=== PATIENT | male | born 1970 | race Caucasian/White ===

== ENCOUNTER → 2016-12-31 | Outpatient (CLI) | payer OTHER ==
--- NOTE | 2016-12-31 13:14 | XR ---
EXAMINATION TYPE: XR elbow complete RT DATE OF EXAM: 12/31/2016 1:07 PM CLINICAL HISTORY: pain TECHNIQUE: Frontal, lateral and oblique images of the right elbow are obtained. COMPARISON: None. FINDINGS: There is no acute fracture/dislocation evident of the elbow. No abnormal fat pad signs ar e seen. The overlying soft tissue appears unremarkable. IMPRESSION: There is no acute fracture or dislocation of the elbow. ICD 10 NO FRACTURE, INITIAL EVALUATION
== END | disposition home or self-care (01) ==
LOC: RADXRMAIN 12:51
PROVIDERS: ATTEND Physician Assistant Medical
DX: M25.521 Pain in right elbow (principal)

== ENCOUNTER → 2017-01-07 | Outpatient (CLI) | payer OTHER ==
--- NOTE | 2017-01-07 21:55 | XR ---
EXAMINATION TYPE: 4 views left wrist. 3 views left hand. DATE OF EXAM: 01/07/2017 4:18 PM COMPARISON: NONE HISTORY: 46-year-old male localized swelling, left upper limb/wrist pain. Lump over the left carpals causing pain. FINDINGS: Wrist: There is negative ulnar variance. Borderline to mild widening of the scapholunate interval measuring up to 2.3 mm on the navicular view. No acute fracture, subluxation, or dislocation. There is a cortic ated bone fragment measuring 6 mm at the dorsal carpus that could represent a chronic ununited trique tral fracture. There is additional fragmentation with bony irregularity at the dorsal CMC joints with the largest bone fragment measuring 1.1 cm. There is overlying soft tissue swelling at the dorsal ca rpus. Mild degenerative spurring at the first CMC joint. Hand: No acute fracture, subluxation, or dislocation. IMPRESSION: 1. 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 2. Possible posttraumatic osteoarthrosis and dorsal carpal deformity on the lateral view at the level of the CMC joints. Overlying soft tissue swelling. The alternative possibility is a degenerated carp al boss. Clinical correlation recommended as to patient's trauma history. 3. Borderline to mild widening of the scapholunate interval suggests age indeterminate ligamentous sp rain/injury. Correlate for any wrist instability. 4. Mild osteoarthritic changes at the base of the thumb. 5. Incidental negative ulnar variance.
== END ==
LOC: RADXRMAIN 16:06
PROVIDERS: ATTEND Nurse Practitioner Family
DX: M25.432 Effusion, left wrist (principal); M19.042 Primary osteoarthritis, left hand

== ENCOUNTER → 2017-01-19 | Outpatient (CLI) | payer OTHER ==
--- NOTE | 2017-01-19 13:13 | XR ---
EXAMINATION TYPE: XR shoulder complete BILAT DATE OF EXAM: 01/19/2017 1:01 PM CLINICAL HISTORY: pain COMPARISON: NONE TECHNIQUE: Three views of the left shoulder are obtained. FINDINGS: There is no acute fracture/dislocation evident. The acromioclavicular and glenohumeral danial int spaces appear mildly narrowed.. The visualized ribs are intact and unremarkable. IMPRESSION: 1. There is no acute fracture or dislocation. ICD 10 NO FRACTURE, INITIAL EVALUATION EXAMINATION TYPE: XR shoulder complete BILAT DATE OF EXAM: 01/19/2017 1:01 PM CLINICAL HISTORY: pain TECHNIQUE: Three views of the right shoulder are obtained. COMPARISON: None FINDINGS: There is no acute fracture/dislocation evident. The acromioclavicular and glenohumeral danial int spaces appear mildly narrowed. The visualized ribs are intact and unremarkable.
== END | disposition home or self-care (01) ==
LOC: RADXRMAIN 12:35
PROVIDERS: ATTEND Family Medicine
DX: S46.012A Strain of muscle(s) and tendon(s) of the rotator cuff of left shoulder, initial encounter (principal); S46.011A Strain of muscle(s) and tendon(s) of the rotator cuff of right shoulder, initial encounter; M25.511 Pain in right shoulder; M25.512 Pain in left shoulder; X58.XXXA Exposure to other specified factors, initial encounter

== ENCOUNTER → 2017-03-24 | Outpatient (CLI) | payer OTHER ==
--- NOTE | 2017-03-24 22:09 | XR ---
EXAMINATION TYPE: 3 views left shoulder. 2 views bilateral AC joints, without and with weights DATE OF EXAM: 03/24/2017 COMPARISON: 01/19/2017 HISTORY: 46-year-old male left shoulder pain after fall FINDINGS: Left shoulder: Moderate degenerative joint space narrowing and marginal spurring at the acromioclavicular joint. Pro minent inferior spurring encroaches onto the subacromial space. No tendinous or bursal calcifications are seen. No acute fracture, subluxation, or dislocation. Visualized left hemithorax is clear. AC joints: There is asymmetric degenerative joint space narrowing at the left AC joint. No abnormal offset at th e AC joint or widening of the coracoclavicular distance either an neutral position or with weights. IMPRESSION: 1. Left shoulder without acute osseous abnormality seen. 2. Moderate left and mild right AC joint osteoarthrosis. Prominent inferior spurring is present on patrick th sides. No abnormal widening or joint offset with weights which argues against AC joint separation.
== END | disposition home or self-care (01) ==
LOC: RADXRMAIN 18:59
PROVIDERS: ATTEND Family Medicine
DX: M19.012 Primary osteoarthritis, left shoulder (principal); M75.82 Other shoulder lesions, left shoulder
CPT/HCPCS: 73050

== ENCOUNTER → 2017-05-25 | Outpatient (CLI) | payer OTHER ==
--- NOTE | 2017-05-25 14:40 | FL ---
Shoulder arthrogram HISTORY: Trauma and pain 1 minute 18 seconds fluoroscopy time supplied, 4 intraoperative images document the procedure Maximal barrier technique was utilized. The skin overlying the glenohumeral joint was localized with fluoroscopy and the overlying skin prepped and draped. Lidocaine used for local anesthesia. 22-gauge needle was advanced into the joint space under fluoroscopy and approximately 2 cc of Omnipaque 240 mi xed with 10 cc saline and 0.1 cc of Magnevist was injected under intermittent fluoroscopy into the danial int, spot images obtained. Following the procedure hemostasis achieved following removal of the needl e. Patient remained in stable condition without complication. IMPRESSION: Fluoroscopic arthrogram for MRI, this procedure performed by the undersigned.
--- NOTE | 2017-05-25 21:08 | MR ---
EXAMINATION TYPE: MR shoulder LT w con DATE OF EXAM: 05/25/2017 COMPARISON: Left shoulder x-ray March 24, 2017. HISTORY: sprain of acromioclavicular ligament lt, arthrogram. Evaluate biceps tendon and labral tear per order. Pain with difficulty raising arm overhead since fall injury 2 months ago. TECHNIQUE: Multiplanar, multisequence images of the left shoulder is performed with 1 mL intravenous MultiHance gadolinium contrast diluted in Omnipaque and sterile saline. Fluoroscopy arthrogram report is dictated separately. FINDINGS: Exam is suboptimal as due to patient pain and was unable to complete entire post arthrogram MRI shoulder protocol. Rotator Cuff: Supraspinatus tendon is completely torn and retracted roughly 3 cm to level of the late ral aspect of the acromion. Infraspinatus tendon remains intact. Teres minor tendon is intact. Subsca pularis tendon is intact. Rotator cuff muscle bulk is preserved. Acromioclavicular Joint: There is capsular hypertrophy with joint space loss and spurring at the acro mioclavicular joint including inferior spurring from distal clavicle. There is effacement of inferior fat plane due to inferior spurring. There is additional subchondral cystic change at this level. Glenohumeral Joint: Successful arthrogram with contrast opacification. Free spillage of contrast into subdeltoid/subacromial space is noted consistent with full-thickness retracted rotator cuff tear. Labrum: The labrum appears grossly intact given limitation of non-arthrogram study. Biceps Tendon: The long head of biceps is in normal location within bicipital groove. Bone marrow signal: No focal abnormal marrow signal is appreciated. Other: No additional significant abnormality is appreciated. IMPRESSION: 1. Full-thickness retracted tear of supraspinatus tendon. 2. Fairly advanced acromioclavicular joint arthropathy with suggestion of underlying impingement inci dentally noted.
== END | disposition home or self-care (01) ==
LOC: RADFLMAIN 13:00
PROVIDERS: ATTEND Orthopaedic Surgery
DX: S46.012A Strain of muscle(s) and tendon(s) of the rotator cuff of left shoulder, initial encounter (principal); M12.812 Other specific arthropathies, not elsewhere classified, left shoulder
CPT/HCPCS: 23350; 73040; 73222; Q9966; A9577

== ENCOUNTER 2019-01-10 08:33 | Day surgery (SDC) | payer OTHER ==
[2019-01-06 10:15] VITALS: BMI 33.6
[~2019-01-10 08:33] MED LIST: SODIUM CHLORIDE 0.9% 1,000 ML IV SCH; ceFAZolin IN SWFI 2 GM/20 ML SYRINGE IVP ONE
[2019-01-10 08:57] VITALS: PULSE 70; RESP 20; TEMP 98
[2019-01-10] MEDS ORDERED: LIDOCAINE 1% INJ 10MG/ML (20 ML MDV) ONE (09:34)
[2019-01-10] MEDS ORDERED: IV FLUID CONTINUATION 450 ML IV ONE (09:35)
[2019-01-10] MEDS ORDERED: fentaNYL (PF) 50 MCG/ML 2 ML AMP ONE (09:45)
[2019-01-10] MEDS ORDERED: fentaNYL (PF) 50 MCG/ML 2 ML AMP IV ONE (09:50)
--- NOTE | 2019-01-10 10:05 | P.PCN ---
Preoperative Diagnosis: Loop explant under sedation and local anesthesia. Patient was brought to the EP lab in a fasting state. Written informed consent was obtained prior to the procedure. The subcutaneous device was successfully explanted under local anesthesia. Preoperative antibiotics were administered. The wound was closed in layers and dressed per protocol. Result: Successful loop monitor explantation. Patient underwent EP procedure under conscious sedation/moderate sedation, monitoring of the level of consciousness and physiologic parameters including but not limited to vital signs and oxygenation. Patient tolerated the procedure well without any acute complications. Start time: 949 Stop time: 956 Disposition: same day
--- NOTE | 2019-01-10 10:06 | P.PRLE ---
RE: Liborio Lopez Dear Dr. Cris Lopez underwent successful explantation of the loop monitor. We are not detected any bradycardia arrhythmias over the last few years He will continue to follow with you as before and I'll see him once again at least a yearly basis Thank you for entrusting me with the care of the patient Warm regards Sincerely Castro Erickson
[2019-01-10 10:50] VITALS: BP 124/76
== END 2019-01-10 10:45 | disposition home or self-care (01) ==
LOC: CATHEP 08:33
PROVIDERS: ATTEND Internal Medicine Clinical Cardiac Electrophysiology
DX: Z45.09 Encounter for adjustment and management of other cardiac device (principal); Z82.49 Family history of ischemic heart disease and other diseases of the circulatory system; F17.210 Nicotine dependence, cigarettes, uncomplicated; Z79.899 Other long term (current) drug therapy; Z79.01 Long term (current) use of anticoagulants; Z91.048 Other nonmedicinal substance allergy status
CPT/HCPCS: 33286; J3010; J0690

== ENCOUNTER → 2019-06-14 | Outpatient (CLI) | payer OTHER ==
--- NOTE | 2019-06-14 12:30 | US ---
LOWER EXTREMITY VENOUS INSUFFICIENCY CLINICAL HISTORY: I87.311 Chronic Venous Hypertension W Rt Leg. SIDE PERFORMED: Bilateral 1) Color flow is present and patency is documented in the following vessels. No DVT or SVT is noted . EIV Common Femoral Vein Deep Femoral Vein Femoral Vein Popliteal Vein Proximal Calf Veins Greater Saph Vein Upper Small Saph Vein 2) There is no venous reflux noted. IMPRESSION: 1. No significant venous reflux evident during this examination. No deep venous thrombosis.
--- NOTE | 2019-06-15 15:07 | P.ARTDOP ---
Arterial Doppler LOWER EXTREMITY ARTERIAL DOPPLER: DATE OF SERVICE: 06/14/2019 Reason for study: Right calf ulcer. Doppler waveforms: Multiphasic bilaterally throughout. Pulse volume recording: []. Pressure gradients: None. Ankle-brachial indices: Greater than 1 bilaterally. Toe pressures: 106 on the right, 106 on the left Impression: Normal study.
== END | disposition home or self-care (01) ==
LOC: RADUSWWP 08:44
PROVIDERS: ATTEND Family Medicine
DX: I87.311 Chronic venous hypertension (idiopathic) with ulcer of right lower extremity (principal); I87.2 Venous insufficiency (chronic) (peripheral); I87.8 Other specified disorders of veins
CPT/HCPCS: 93922; 93970

== ENCOUNTER 2019-07-12 19:26 | Emergency (ER) | payer OTHER ==
[2019-07-12 19:34] VITALS: BP 145/83; PULSE 86; RESP 18; TEMP 98.6
--- NOTE | 2019-07-12 20:27 | XR ---
PROCEDURE: XR tibia fibula RT - 4V DATE AND TIME: 07/12/2019 7:56 PM CLINICAL INDICATION: PHH; pain after hit himsef with hammer TECHNIQUE: Orthogonal imaging was obtained of the knee contiguously to the ankle. COMPARISON: 06/04/2016 FINDINGS: There is no fracture or malalignment. The soft tissues are unremarkable. IMPRESSION: NO ACUTE PROCESS.
--- NOTE | 2019-07-12 20:35 | ED ---
General Adult HPI - General Chief complaint: Extremity Injury, Lower Stated complaint: IHS R Leg Injury Time Seen by Provider: 07/12/19 19:35 Source: patient Mode of arrival: ambulatory Limitations: no limitations - History of Present Illness Initial comments: Patient is a 48-year-old male with factor Leiden is presenting to emergency Department with a chief complaint of right leg pain. Patient reports he was at work when he accidentally hit his right lower leg with a hammer. The region he injured was already dressed by the wound clinic for healing also. Patient also has stasis dermatitis chronically in the right lower leg. Patient reports tenderness with palpation in the region. Patient denies any limitation with range of motion. Patient denies taking any medication to alleviate the symptoms. Patient is already on antibiotics for a healing wound. Patient declined pain medication. - Related Data Home Medications Medication Instructions Recorded Confirmed HYDROcodone/APAP 7.5-325MG [[place] 1 each PO Q6HR PRN 01/12/15 01/06/19 7.5-325] Ibuprofen [Motrin] 800 mg PO Q6HR PRN 01/12/15 01/06/19 Omeprazole [PriLOSEC] 20 mg PO AC-BID 01/12/15 01/06/19 Rivaroxaban [Xarelto] 20 mg PO DAILY 01/12/15 01/10/19 Allergies Allergy/AdvReac Type Severity Reaction Status Date / Time adhesive AdvReac Rash/Hives Verified 07/12/19 19:34 Review of Systems ROS Statement: Those systems with pertinent positive or pertinent negative responses have been documented in the HPI. ROS Other: All systems not noted in ROS Statement are negative. Past Medical History Past Medical History: Blood Disorder, Deep Vein Thrombosis (DVT), GERD/Reflux, Osteoarthritis (OA) Additional Past Medical History / Comment(s): SEE DR LIVINGSTON H&P, FACTOR 5 LEIDEN, DVT X 4 LOWER RT LEG, ulcer to right ankle, History of Any Multi-Drug Resistant Organisms: None Reported Past Surgical History: Orthopedic Surgery Additional Past Surgical History / Comment(s): LOOP RECORDER IMPLANT GANGLION CYST REMOVED RT WRIST, ARTH. SURG X 2 RT KNEE & X1 LT KNEE, left rotator cuff surgery, Past Anesthesia/Blood Transfusion Reactions: No Reported Reaction Past Psychological History: No Psychological Hx Reported Smoking Status: Current every day smoker Past Alcohol Use History: None Reported Past Drug Use History: None Reported - Past Family History Mother Family Medical History: No Reported History Father Family Medical History: Coronary Artery Disease (CAD) Additional Family Medical History / Comment(s): ETOH use. Still living. General Exam Limitations: no limitations General appearance: alert, in no apparent distress Head exam: Present: atraumatic, normocephalic, normal inspection Eye exam: Present: normal appearance Pupils: Present: normal accommodation ENT exam: Present: normal exam, mucous membranes moist, normal external ear exam Neck exam: Present: normal inspection, full ROM Respiratory exam: Present: normal lung sounds bilaterally Cardiovascular Exam: Present: regular rate, normal rhythm, normal heart sounds Extremities exam: Present: tenderness (Tenderness at the site of injury.), normal capillary refill. Absent: normal inspection (Stasis dermatitis in the ri ght lower leg. Mild abrasion in the right lower leg at the site of injury. No discharge noted.), full ROM, calf tenderness (Negative Homans bilaterally.) Back exam: Present: normal inspection, full ROM Neurological exam: Present: alert, oriented X3 Psychiatric exam: Present: normal affect, normal mood Skin exam: Present: warm, intact, normal color Course Vital Signs 07/12/19 19:31 Temperature 98.6 F Pulse Rate 86 Respiratory 18 Rate Blood Pressure 145/83 O2 Sat by Pulse 98 Oximetry Medical Decision Making - Medical Decision Making Patient is a 48-year-old male with history of factor V Leiden is presenting to the emergency department with a chief complaint right leg injury. Patient hit himself with a hammer. Physical examination there is only mild abrasion at the site of injury. Patient has no calf tenderness. However, the right lower leg was dressed by the wound clinic with high compression stockings soda patient does not have swelling. X-rays are negative for acute fractures or dislocations. The right lower leg was redressed. Patient advised to follow-up with her own clinic tomorrow. Patient is currently taking Bactrim. Strict return parameters were thoroughly discussed the patient was understanding and agreeable. Case discussed with physician. Disposition Clinical Impression: Injury of lower leg, right Disposition: HOME SELF-CARE Condition: Stable Instructions (If sedation given, give patient instructions): Leg Pain (ED) Additional Instructions: Please follow up with. Wound clinic. Please return to emergency department symptoms worsen. Continue taking the Bactrim prescribed. Is patient prescribed a controlled substance at d/c from ED?: No Referrals: Timothy Lynch III, MD [Primary Care Provider] - 1-2 days Time of Disposition: 20:35
== END 2019-07-12 21:09 | disposition home or self-care (01) ==
LOC: EC 19:26
DX: S80.811A Abrasion, right lower leg, initial encounter (principal); I87.2 Venous insufficiency (chronic) (peripheral); K21.9 Gastro-esophageal reflux disease without esophagitis; D68.51 Activated protein C resistance; F17.200 Nicotine dependence, unspecified, uncomplicated; Z91.048 Other nonmedicinal substance allergy status; Z79.01 Long term (current) use of anticoagulants; Z79.899 Other long term (current) drug therapy; Z86.718 Personal history of other venous thrombosis and embolism; W22.8XXA Striking against or struck by other objects, initial encounter; Y92.69 Other specified industrial and construction area as the place of occurrence of the external cause; Y99.0 Civilian activity done for income or pay
CPT/HCPCS: 99283

== ENCOUNTER 2019-10-28 12:58 | Emergency (ER) | payer OTHER ==
[2019-10-28 13:05] VITALS: RESP 16; TEMP 98.6
[2019-10-28] MEDS ORDERED: DIPH,PERTUS(ACELL)TETVAC-LF 0.5 ML VIAL IM ONE (13:17)
[2019-10-28] MEDS ORDERED: ceFAZolin 1,000 MG VIAL (IM USE) IM STA (13:17)
--- NOTE | 2019-10-28 14:19 | ED ---
Burn/Smoke HPI - General Chief complaint: Burn/Smoke Inhalation Stated complaint: IHS-left leg burn Time Seen by Provider: 10/28/19 13:10 Source: patient Mode of arrival: ambulatory Limitations: no limitations - History of Present Illness Initial comments: 49-year-old male presenting today for chief complaint of burn to left foot. Patient states he was at work blowing hot baths when it seemed to pants and into his left boot. Patient states he has areas of the burn blistering and redness of the left foot. Patient states some areas is unable to feel. Patient denies any other areas of body that was involved denies any smoke inhalation or involvement of the head or neck. Patieny appears well on arrival, ambulatory. - Related Data Home Medications Medication Instructions Recorded Confirmed HYDROcodone/APAP 7.5-325MG [[place] 1 each PO Q6HR PRN 01/12/15 01/06/19 7.5-325] Ibuprofen [Motrin] 800 mg PO Q6HR PRN 01/12/15 01/06/19 Omeprazole [PriLOSEC] 20 mg PO AC-BID 01/12/15 01/06/19 Rivaroxaban [Xarelto] 20 mg PO DAILY 01/12/15 01/10/19 Allergies Allergy/AdvReac Type Severity Reaction Status Date / Time silver sulfadiazine Allergy Rash/Hives Verified 10/28/19 13:02 [From Silvadene] adhesive AdvReac Rash/Hives Verified 10/28/19 13:02 Review of Systems ROS Statement: Those systems with pertinent positive or pertinent negative responses have been documented in the HPI. ROS Other: All systems not noted in ROS Statement are negative. Past Medical History Past Medical History: Blood Disorder, Deep Vein Thrombosis (DVT), GERD/Reflux, Osteoarthritis (OA) Additional Past Medical History / Comment(s): SEE DR LIVINGSTON H&P, FACTOR 5 LEIDEN, DVT X 4 LOWER RT LEG, ulcer to right ankle, History of Any Multi-Drug Resistant Organisms: None Reported Past Surgical History: Orthopedic Surgery Additional Past Surgical History / Comment(s): LOOP RECORDER IMPLANT GANGLION CYST REMOVED RT WRIST, ARTH. SURG X 2 RT KNEE & X1 LT KNEE, left rotator cuff surgery, Past Anesthesia/Blood Transfusion Reactions: No Reported Reaction Past Psychological History: No Psychological Hx Reported Smoking Status: Current every day smoker Past Alcohol Use History: None Reported Past Drug Use History: None Reported - Past Family History Mother Family Medical History: No Reported History Father Family Medical History: Coronary Artery Disease (CAD) Additional Family Medical History / Comment(s): ETOH use. Still living. General Exam - General Exam Comments Initial Comments: General: The patient is awake and alert, in no distress Eye: +3 mm pupils are equal, round and reactive to light, extra-ocular movements are intact. No nystagmus. There is normal conjunctiva bilaterally. No signs of icterus. Ears, nose, mouth and throat: There are moist mucous membranes and no oral lesions. Neck: The neck is supple, there is no tenderness or JVD. Cardiovascular: There is a regular rate and rhythm. No murmur, rub or gallop is appreciated. Respiratory: Lungs are clear to auscultation, respirations are non-labored, breath sounds are equal. No wheezes, stridor, rales, or rhonchi. Musculoskeletal: Normal ROM, no tenderness. Strength 5/5. Sensation intact. Radial pulses equal bilaterally 2+. Neurological: A&O x 3. CN II-XII intact grossly, There are no obvious motor or sensory deficits. Coordination appears grossly intact. Speech is normal. Skin: Skin is warm and dry and no rashes. 2 areas of 5x2cm of whitened skin, nonblanchable, the surrounding skin is red, blanchable with pain to touch roughly 1-2% BSA. The whitened areas have no sensation. The 1st area (5x2cm) is on the lateral aspect of ankle 1cm ventral to the achilles, just below the lateral malleolus. the second is on the forefoot 2cm distal to ankle joint. Psychiatric: Cooperative, appropriate mood & affect, normal judgment. Limitations: no limitations Course Vital Signs 10/28/19 13:02 Temperature 98.6 F Pulse Rate 86 Respiratory 16 Rate Blood Pressure 150/60 O2 Sat by Pulse 98 Oximetry Medical Decision Making - Medical Decision Making 49-year-old male presenting today for chief complaint of left foot burn. 2 areas of third-degree burn roughly 5 x 2 cm there near but not crossing joint margins. Mostly the burn is first-degree however there are the 2 large areas of third degree shamra. Tetanus updated, patient given kefzol. [facility] was [place], recommend patient be transferred for evaluation and possible debridement by burn team. Patient refused ambulance transfer, prefers personal vehicle. Patient stable at this time and I am agreeable to direct personal transfer. Patient given directions, and provided address, is to present directly to the ER, where accepting physician is waiting for patient arrival-Dr. Son. Patient bandaged prior to transfer. Case with Dr. Guerrero who is agreeable to care and discharge. Disposition Clinical Impression: Third degree burn, Left foot burn, First degree burn Disposition: OTHER INSTITUTION NOT DEFINED Condition: Stable Is patient prescribed a controlled substance at d/c from ED?: No Referrals: Timothy Lynch III, MD [Primary Care Provider] - 1-2 days Time of Disposition: 14:23 - Out of Hospital Transfer - Req. Specs Out of Hospital Transfer - Requested Specifics: Other Emergency Center ([facility] Receiving; Dr. Son accepting, Burn director Dr. Hernandez consulted.)
[2019-10-28] MEDS ORDERED: HYDROcodone/APAP 7.5-325MG 1 EACH TAB PO ONE (14:30)
[2019-10-28 14:57] VITALS: BP 134/60; PULSE 81
== END 2019-10-28 14:57 | disposition other institution (70) ==
LOC: EC 12:58
DX: T25.322A Burn of third degree of left foot, initial encounter (principal); D68.51 Activated protein C resistance; F17.200 Nicotine dependence, unspecified, uncomplicated; Z23 Encounter for immunization; Z91.048 Other nonmedicinal substance allergy status; Z86.718 Personal history of other venous thrombosis and embolism; Z79.899 Other long term (current) drug therapy; Z79.01 Long term (current) use of anticoagulants; X17.XXXA Contact with hot engines, machinery and tools, initial encounter; Y93.89 Activity, other specified; Y92.69 Other specified industrial and construction area as the place of occurrence of the external cause; Y99.0 Civilian activity done for income or pay
CPT/HCPCS: 90715; 90471; 96372; 99284; J0690

== ENCOUNTER 2019-11-01 18:58 | Emergency (ER) | payer OTHER ==
[2019-11-01 19:48] VITALS: RESP 18; TEMP 98.5
[2019-11-01] MEDS ORDERED: CEPHALEXIN 500MG STARTER PACK 4 CAP BTL PO STA (21:01)
[2019-11-01] MEDS ORDERED: CEPHALEXIN 500 MG CAP PO STA (21:01)
[2019-11-01] MEDS ORDERED: HYDROcodone/APAP 5-325MG 1 EACH TAB PO STA (21:32)
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
[2019-11-01 22:04] VITALS: BP 121/85; PULSE 88
== END 2019-11-01 22:04 | disposition home or self-care (01) ==
LOC: EC 18:58
DX: T25.12 Burn of first degree of foot (principal); K21.9 Gastro-esophageal reflux disease without esophagitis; M19.90 Unspecified osteoarthritis, unspecified site; F17.200 Nicotine dependence, unspecified, uncomplicated; Z88.2 Allergy status to sulfonamides; Z91.048 Other nonmedicinal substance allergy status; Z79.01 Long term (current) use of anticoagulants; Z86.718 Personal history of other venous thrombosis and embolism
CPT/HCPCS: 99283

== ENCOUNTER → 2020-11-02 | Outpatient (CLI) | payer OTHER ==
--- NOTE | 2020-11-02 13:08 | XR ---
EXAMINATION TYPE: XR shoulder complete RT DATE OF EXAM: 11/02/2020 COMPARISON: NONE HISTORY: Pain TECHNIQUE: Shoulder examined in 3 projections FINDINGS: The humeral head articulates with the glenoid. The acromio-clavicular junction is normal. No acute fractures or dislocations are evident. A follow up study can be performed 7-10 days from acute trauma for continued pain. IMPRESSION: 1. Normal three-view right Shoulder
--- NOTE | 2020-11-02 13:11 | XR ---
EXAMINATION TYPE: XR AC joint BILAT DATE OF EXAM: 11/02/2020 COMPARISON: Right shoulder x-ray 11/02/2020 HISTORY: Pain TECHNIQUE: Bilateral acromioclavicular junctions are evaluated without with weights. FINDINGS: Acromioclavicular junctions are preserved. No widening of the AC joints is evident. There i s inferior spurring present bilaterally. No acute fractures are identified. IMPRESSION: 1. Degenerative changes with inferior spurring 2. No acute acromioclavicular junction abnormalities
== END | disposition home or self-care (01) ==
LOC: RADXRMAIN 12:12
PROVIDERS: ATTEND Family Medicine
DX: M19.011 Primary osteoarthritis, right shoulder (principal)
CPT/HCPCS: 73050

== ENCOUNTER 2021-08-29 19:04 | Observation (INO) | payer OTHER ==
--- NOTE | 2021-08-29 19:26 | ED ---
General Adult HPI - General Chief complaint: Chest Pain Stated complaint: IHS-Chest pain and arm pain Time Seen by Provider: 08/29/21 19:14 Source: patient Mode of arrival: ambulatory Limitations: no limitations - History of Present Illness Initial comments: Dictation was produced using [employer] dictation software. please excuse any grammatical, word or spelling errors. Chief Complaint: Patient is a 50-year-old male presents emergency department for chest pain History of Present Illness: Is a 50-year-old male says the emergency department for chest pain. Patient states that at work about 2 hours prior to arrival he started having episodes of chest pain. States he last for several minutes. Patient reports that the pain to be to his left anterior chest radiating down to his elbow area. Patient has a history of heart problems. He has past medical history factor V Leiden. Patient has history of tobacco use. Denies any hi story of coronary artery disease. No family history. Patient is asymptomatic at the bedside. The ROS documented in this emergency department record has been reviewed and confirmed by me. Those systems with pertinent positive or negative responses have been documented in the HPI. All other systems are other negative and/or noncontributory. PHYSICAL EXAM: General Impression: Alert and oriented x3, not in acute distress HEENT: Normocephalic atraumatic, extra-ocular movements intact, pupils equal and reactive to light bilaterally, mucous membranes moist. Cardiovascular: Heart regular rate and rhythm Chest: Able to complete full sentences, no retractions, no tachypnea Abdomen: abdomen soft, non-tender, non-distended, no organomegaly Musculoskeletal: Pulses present and equal in all extremities, no peripheral edema Motor: no focal deficits noted Neurological: CN II-XII grossly intact, no focal motor or sensory deficits noted Skin: Intact with no visualized rashes Psych: Normal affect and mood ED course: 50-year-old male presents to the emergency department for chest pain concerning for ACS. He is asymptomatic at the bedside. He has some risk factors. Signs upon arrival are within acceptable limits. EKG interpretation: Ventricular rate 77, normal sinus rhythm,. Interval 150, QRS 94, QTC 427. There is perhaps hyperacute T waves in the anterior precordial leads. No IL prolongation, no QTC prolongation. Repeat EKG was performed 30 minutes later showing no dynamic changes. Laboratory evaluation obtained. CBC, coag panel is unremarkable. Metabolic panel is unremarkable. Troponin slightly increased at 0.014. Patient reevaluated at bedside still having some slight aching. A third EKG was performed. No dynamic changes noted. Patient given nitro paste. Patient given aspirin. Patient will be admitted. Stress with [facility] who is willing to accept a patient care on behalf of [facility] hospitalist group. - Related Data Home Medications Medication Instructions Recorded Confirmed HYDROcodone/APAP 7.5-325MG [[place] 1 tab PO Q6HR PRN 01/12/15 08/29/21 7.5-325] Ibuprofen [Motrin] 800 mg PO TID PRN 01/12/15 08/29/21 Liraglutide [Saxenda] 1.8 mg SQ DAILY 08/29/21 08/29/21 Omeprazole 40 mg PO DAILY 08/29/21 08/29/21 Sildenafil Citrate 100 mg PO DAILY PRN 08/29/21 08/29/21 Allergies Allergy/AdvReac Type Severity Reaction Status Date / Time silver sulfadiazine Allergy Rash/Hives Verified 08/29/21 20:24 [From Silvadene] adhesive AdvReac Rash/Hives Verified 08/29/21 20:24 Review of Systems ROS Statement: Those systems with pertinent positive or pertinent negative responses have been documented in the HPI. ROS Other: All systems not noted in ROS Statement are negative. Past Medical History Past Medical History: Blood Disorder, Deep Vein Thrombosis (DVT), GERD/Reflux, Osteoarthritis (OA) Additional Past Medical History / Comment(s): SEE DR LIVINGSTON H&P, FACTOR 5 LEIDEN, DVT X 4 LOWER RT LEG, ulcer to right ankle, History of Any Multi-Drug Resistant Organisms: None Reported Past Surgical History: Orthopedic Surgery Additional Past Surgical History / Comment(s): LOOP RECORDER IMPLANT GANGLION CYST REMOVED RT WRIST, ARTH. SURG X 2 RT KNEE & X1 LT KNEE, left rotator cuff surgery, Past Anesthesia/Blood Transfusion Reactions: No Reported Reaction Past Psychological History: No Psychological Hx Reported Smoking Status: Current every day smoker Past Alcohol Use History: None Reported Past Drug Use History: None Reported - Past Family History Mother Family Medical History: No Reported History Father Family Medical History: Coronary Artery Disease (CAD) Additional Family Medical History / Comment(s): ETOH use. Still living. General Exam Limitations: no limitations Course Vital Signs 08/29/21 08/29/21 19:10 20:13 Temperature 98.4 F Pulse Rate 76 74 Respiratory 18 18 Rate Blood Pressure 119/86 141/77 O2 Sat by Pulse 96 97 Oximetry Medical Decision Making - Lab Data Result diagrams: 08/29/21 19:45 08/29/21 19:45 Lab Results 08/29/21 08/29/21 08/29/21 Range/Units 19:45 19:45 19:45 WBC 9.2 (3.8-10.6) k/uL RBC 5.33 (4.30-5.90) m/uL Hgb 16.4 (13.0-17.5) gm/dL Hct 47.0 (39.0-53.0) % MCV 88.1 (80.0-100.0) fL MCH 30.7 (25.0-35.0) pg MCHC 34.9 (31.0-37.0) g/dL RDW 13.0 (11.5-15.5) % Plt Count 239 (150-450) k/uL MPV 7.6 Neutrophils % 62 % Lymphocytes % 31 % Monocytes % 4 % Eosinophils % 2 % Basophils % 0 % Neutrophils # 5.7 (1.3-7.7) k/uL Lymphocytes # 2.8 (1.0-4.8) k/uL Monocytes # 0.4 (0-1.0) k/uL Eosinophils # 0.1 (0-0.7) k/uL Basophils # 0.0 (0-0.2) k/uL PT 9.8 (9.0-12.0) sec INR 0.9 (<1.2) APTT 28.7 (22.0-30.0) sec Sodium 135 L (137-145) mmol/L Potassium 4.5 (3.5-5.1) mmol/L Chloride 103 (98-107) mmol/L Carbon Dioxide 21 L (22-30) mmol/L Anion Gap 11 mmol/L BUN 17 (9-20) mg/dL Creatinine 1.22 (0.66-1.25) mg/dL Est GFR (CKD-EPI)AfAm 81 (>60 ml/min/1.73 sqM) Est GFR (CKD-EPI)NonAf 70 (>60 ml/min/1.73 sqM) Glucose 109 H (74-99) mg/dL Calcium 9.1 (8.4-10.2) mg/dL Magnesium 1.8 (1.6-2.3) mg/dL Total Bilirubin 0.5 (0.2-1.3) mg/dL AST 29 (17-59) U/L ALT 17 (4-49) U/L Alkaline Phosphatase 83 (38-126) U/L Troponin I (0.000-0.034) ng/mL Total Protein 7.3 (6.3-8.2) g/dL Albumin 4.3 (3.5-5.0) g/dL 08/29/21 Range/Units 19:45 WBC (3.8-10.6) k/uL RBC (4.30-5.90) m/uL Hgb (13.0-17.5) gm/dL Hct (39.0-53.0) % MCV (80.0-100.0) fL MCH (25.0-35.0) pg MCHC (31.0-37.0) g/dL RDW (11.5-15.5) % Plt Count (150-450) k/uL MPV Neutrophils % % Lymphocytes % % Monocytes % % Eosinophils % % Basophils % % Neutrophils # (1.3-7.7) k/uL Lymphocytes # (1.0-4.8) k/uL Monocytes # (0-1.0) k/uL Eosinophils # (0-0.7) k/uL Basophils # (0-0.2) k/uL PT (9.0-12.0) sec INR (<1.2) APTT (22.0-30.0) sec Sodium (137-145) mmol/L Potassium (3.5-5.1) mmol/L Chloride (98-107) mmol/L Carbon Dioxide (22-30) mmol/L Anion Gap mmol/L BUN (9-20) mg/dL Creatinine (0.66-1.25) mg/dL Est GFR (CKD-EPI)AfAm (>60 ml/min/1.73 sqM) Est GFR (CKD-EPI)NonAf (>60 ml/min/1.73 sqM) Glucose (74-99) mg/dL Calcium (8.4-10.2) mg/dL Magnesium (1.6-2.3) mg/dL Total Bilirubin (0.2-1.3) mg/dL AST (17-59) U/L ALT (4-49) U/L Alkaline Phosphatase (38-126) U/L Troponin I 0.014 (0.000-0.034) ng/mL Total Protein (6.3-8.2) g/dL Albumin (3.5-5.0) g/dL Disposition Clinical Impression: ACS (acute coronary syndrome) Disposition: ADMITTED IP TO THIS HOSP Condition: Fair
[2021-08-29 20:06] LABS: Basophils % (A) 0 %; Eosinophils # (A) 0.1 k/uL (0-0.7); Eosinophils % (A) 2 %; HGB 16.4 gm/dL (13.0-17.5); Lymphocytes # (A) 2.8 k/uL (1.0-4.8); Lymphocytes % (A) 31 %; MCH 30.7 pg (25.0-35.0); MCHC 34.9 g/dL (31.0-37.0); MCV 88.1 fL (80.0-100.0); Mean Platelet Volume 7.6; Monocytes # (A) 0.4 k/uL (0-1.0); Monocytes % (A) 4 %; Neutrophils # (A) 5.7 k/uL (1.3-7.7); Neutrophils % (A) 62 %; Platelet Count 239 k/uL (150-450); RBC 5.33 m/uL (4.30-5.90); WBC 9.2 k/uL (3.8-10.6)
[2021-08-29 20:23] LABS: Albumin 4.3 g/dL (3.5-5.0); Calcium 9.1 mg/dL (8.4-10.2); Magnesium 1.8 mg/dL (1.6-2.3); Total Bilirubin 0.5 mg/dL (0.2-1.3); Total Protein 7.3 g/dL (6.3-8.2)
[2021-08-29 20:32] LABS: Potassium 4.5 mmol/L (3.5-5.1)
--- NOTE | 2021-08-29 20:47 | XR ---
EXAMINATION: XR chest 2V DATE AND TIME: 08/29/2021 8:02 PM CLINICAL INDICATION: PHH; Chest Pain TECHNIQUE: Departmental protocol COMPARISON: 06/02/2018 FINDINGS: The lungs are clear. The pleural spaces are negative. The cardiac silhouette is not enlarged. The remainder of the mediastinal silhouette is unremarkable. The skeletal structures and soft tissues are negative for acute findings. IMPRESSION: NO ACUTE PROCESS.
[2021-08-29 20:51] LABS: INR 0.9 (<1.2); Partial Thromboplastin Time 28.7 sec (22.0-30.0); Prothrombin Time 9.8 sec (9.0-12.0)
[2021-08-29] MEDS ORDERED: ASPIRIN 81 MG PO STA (20:57)
[2021-08-29] MEDS ORDERED: SODIUM CHLORIDE 0.9% 1,000 ML IV SCH (21:00)
[2021-08-29] MEDS: NITROGLYCERIN OINT 1 INCH/GM PACKET TOPICAL SCH (22:09)
[2021-08-30 04:04] VITALS: RESP 16
[2021-08-30] MEDS: NITROGLYCERIN OINT 1 INCH/GM PACKET TOPICAL SCH ×3 (04:04→12:17)
[2021-08-30] MEDS ORDERED: ACETAMINOPHEN TAB 325 MG TAB PO PRN (06:26)
[2021-08-30] MEDS ORDERED: SODIUM CHLORIDE 0.9% 1,000 ML IV SCH (08:00)
[2021-08-30] MEDS ORDERED: AMINOPHYLLINE 500 MG/20 ML VIAL IV PRN (08:25)
[2021-08-30] MEDS ORDERED: CAFFEINE CITRATE 60 MG/3 ML VIAL IV PRN (08:25)
[2021-08-30] MEDS ORDERED: REGADENOSON 0.4 MG/5 ML SYRINGE IV PRN (08:25)
--- NOTE | 2021-08-30 08:35 | P.HPIM ---
History of Present Illness This is a pleasant 50 years old male with past medical history of Deep Vein Thrombosis not on anticoagulation, GERD, Osteoarthritis , FACTOR 5 LEIDEN, DVT X 4 LOWER RT LEG, SVT status post ablation and he sees Dr. Medina. Patient presents because of chest pain. 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 And within 45-60 minutes which recurred again H time last is about 1-2 minutes. Patient in total he had 4-5 times of such episodes of chest pain. Currently his chest pain has gone and it is 0/10. Also he had some mild frontal headache about 3/10 which he had a now and then. No other specific complaints by the patient. No dyspnea or coughing. No abdominal pain nausea vomiting diarrhea. No urinary complaints. No weakness numbness or dizziness he was at work and had a suddent onset of chest pain and left shoulder pain at anout 1700. No other symptoms and pt. is not currently experiencing pain. He has history of factor V Leyden and he supposed to be on Xarelto 20 mg for his recurrent DVT, he has 4 episodes of right leg DVT, last one was about 6-7 years ago His right leg is warm and swollen, it has some brown discoloration in the distal part but patient states this is a chronic. Patient states that his swelling is chronic and goes in both legs and more on the right side. However during my examination left leg is significantly swollen, slightly more swollen on the right side. Labs including CBC, INR, BMP and liver enzymes are unremarkable. Troponins 3 are negative at 0.01, 0.02 on 0.02. Creatinine is 1.2. Coronavirus is not detected. EKG showing normal sinus rhythm at [address]-T changes Chest x-ray: No acute process. In the emergency room he was given aspirin 325 mg Review of Systems CONSTITUTIONAL: No fever, no malaise, no fatigue. HEENT: No recent visual problems or hearing problems. Denied any sore throat. CARDIOVASCULAR: No orthopnea, PND, no palpitations, no syncope. PULMONARY: No shortness of breath, no cough, no hemoptysis. GASTROINTESTINAL: No diarrhea, no nausea, no vomiting, no abdominal pain. Normoactive bowel sounds. NEUROLOGICAL: No headaches, no weakness, no numbness. HEMATOLOGICAL: Denies any bleeding or petechiae. GENITOURINARY: Denies any burning micturition, frequency, or urgency. MUSCULOSKELETAL/RHEUMATOLOGICAL: Denies any joint pain, swelling, or any muscle pain. ENDOCRINE: Denies any polyuria or polydipsia. Past Medical History Past Medical History: Blood Disorder, Deep Vein Thrombosis (DVT), GERD/Reflux, Osteoarthritis (OA) Additional Past Medical History / Comment(s): SEE DR LIVINGSTON H&P, FACTOR 5 LEIDEN, DVT X 4 LOWER RT LEG, ulcer to right ankle, History of Any Multi-Drug Resistant Organisms: None Reported Past Surgical History: Orthopedic Surgery Additional Past Surgical History / Comment(s): LOOP RECORDER IMPLANT GANGLION CYST REMOVED RT WRIST, ARTH. SURG X 2 RT KNEE & X1 LT KNEE, left rotator cuff surgery, Past Anesthesia/Blood Transfusion Reactions: No Reported Reaction Past Psychological History: No Psychological Hx Reported Smoking Status: Current every day smoker Past Alcohol Use History: None Reported Past Drug Use History: None Reported - Past Family History Mother Family Medical History: No Reported History Father Family Medical History: Coronary Artery Disease (CAD) Additional Family Medical History / Comment(s): ETOH use. Still living. Medications and Allergies Home Medications Medication Instructions Recorded Confirmed Type HYDROcodone/APAP 7.5-325MG [[place] 1 tab PO Q6HR PRN 01/12/15 08/29/21 History 7.5-325] Ibuprofen [Motrin] 800 mg PO TID PRN 01/12/15 08/29/21 History Liraglutide [Saxenda] 1.8 mg SQ DAILY 08/29/21 08/29/21 History Omeprazole 40 mg PO DAILY 08/29/21 08/29/21 History Sildenafil Citrate 100 mg PO DAILY PRN 08/29/21 08/29/21 History Allergies Allergy/AdvReac Type Severity Reaction Status Date / Time silver sulfadiazine Allergy Rash/Hives Verified 08/29/21 20:24 [From Silvadene] adhesive AdvReac Rash/Hives Verified 08/29/21 20:24 Physical Exam Vitals: Vital Signs Temp Pulse Resp BP Pulse Ox 08/30/21 06:08 97.9 F 66 16 140/88 96 08/30/21 05:45 71 16 100 08/30/21 04:00 68 16 130/82 100 08/29/21 23:00 72 18 144/88 97 08/29/21 20:13 74 18 141/77 97 08/29/21 19:10 98.4 F 76 18 119/86 96 Intake and Output 08/29/21 08/30/21 08/30/21 22:59 06:59 14:59 Other: Weight 129.274 kg GENERAL: The patient is alert and oriented x3, not in any acute distress. Well developed, well nourished. HEENT: Pupils are round and equally reacting to light. EOMI. No scleral icterus. No conjunctival pallor. Normocephalic, atraumatic. No pharyngeal erythema. No thyromegaly. CARDIOVASCULAR: S1 and S2 present. No murmurs, rubs, or gallops. PULMONARY: Chest is clear to auscultation, no wheezing or crackles. ABDOMEN: Soft, nontender, nondistended, normoactive bowel sounds. No palpable organomegaly. MUSCULOSKELETAL: No joint swelling or deformity. -EXTREMITIES: No cyanosis, clubbing, or pedal edema. The right leg little more swollen NEUROLOGICAL: Gross neurological examination did not reveal any focal deficits. SKIN: No rashes. No petechiae Results CBC & Chem 7: 08/29/21 19:45 08/29/21 19:45 Labs: Abnormal Lab Results - Last 24 Hours (Table) 08/29/21 Range/Units 19:45 Sodium 135 L (137-145) mmol/L Carbon Dioxide 21 L (22-30) mmol/L Glucose 109 H (74-99) mg/dL Assessment and Plan Assessment: Chest pain, rule out cardiac causes Nicotine dependence noncompliance to therapy of Xarelto for his history of DVT Obesity with BMI of 36.36 History of GERD History of factor V bleeding and the venous thrombosis more than once. History of SVT status post ablation Plan: This is a pleasant 50 years old male who presents because of chest pain Cardiology team were consulted Continue with aspirin Order echocardiogram Check Doppler of the legs Start IV hydration Labs and medication were reviewed.. Continue same treatment. Continue with symptomatic treatment. Resume home medication. Monitor lytes and vitals. DVT and GI prophylaxis. Further recommendations depends on the clinical course of the patient DVT prophylaxis: Subcutaneous heparin GI Prophylaxis: Pepcid Prognosis is guarded
[2021-08-30] MEDS ORDERED: DOBUTamine DRIP for NUC MED 500 MG in DEXTROSE/WATER 1 250ML.BAG IV PRN (08:50)
[2021-08-30] MEDS ORDERED: HEPARIN SODIUM,PORCINE/PF 5,000 UNIT/0.5 ML SYRINGE SQ SCH (09:00)
[2021-08-30] MEDS ORDERED: ASPIRIN 325 MG TAB PO SCH (09:00)
[2021-08-30] MEDS ORDERED: FAMOTIDINE 20 MG/2 ML VIAL IV SCH (09:00)
--- NOTE | 2021-08-30 09:08 | US ---
EXAMINATION TYPE: US venous doppler duplex LE BI DATE OF EXAM: 08/30/2021 8:56 AM COMPARISON: Prior ultrasound June 14, 2019 CLINICAL HISTORY: pain. h/o DVT in right leg 7yrs ago, chronic swelling of right leg, chest pain, not on thinners SIDE PERFORMED: Bilateral TECHNIQUE: The lower extremity deep venous system is examined utilizing real time linear array sonog muriel with graded compression, doppler sonography and color-flow sonography. VESSELS IMAGED: Common Femoral Vein Deep Femoral Vein Greater Saphenous Vein * Femoral Vein Popliteal Vein Small Saphenous Vein * Proximal Calf Veins (* superficial vessels) Right Leg: Negative for acute DVT, chronic characteristics with not fully compressible veins with no wall to wall color fill, 3.5cm popiteal cyst Left Leg: Negative for DVT, 3.0cm popiteal cyst Grayscale, color doppler, spectral doppler imaging performed of the deep veins of the lower extremiti es. IMPRESSION: Some partial occlusive DVT in the right lower extremity favored chronic in age as there is no expansile hyperechoic material within the venous lumen.
--- NOTE | 2021-08-30 10:12 | P.CRDCN ---
History of Present Illness History of present illness: HISTORY OF PRESENT ILLNESS: This is a 50-year-old male with a past medical history significant for SVT with previous ablation, loop recorder with subsequent removal of loop recorder and DVT. Patient follows in the office with Dr. Erickson. We have been asked to see t he patient in consultation for chest pain. Patient examined at the bedside. The patient reports a history of DVT personally 7 years ago. The patient states he was prescribed Xarelto in the past but has not been taking this. 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 He states the pain was in the middle of his chest and down his left arm. He states the pain would only last for a minute or 2 and then go away. However this pain continued to recur over the next couple hours so he came to the emergency room for further evaluation. This morning the patient denies any chest pain or pressure. Denies shortness of breath. He reports a family history of coronary artery disease and states his dad had a heart attack when he was in his 30s. EKG reveals sinus mechanism with nonspecific ST-T wave changes Chest xray negative for acute process Laboratory data: WBC 9.2. Hemoglobin 16.4. Platelet count 239. Sodium 135. Potassium 4.5. BUN 17. Creatinine 1.22. Magnesium 1.8. Troponin negative 3. Current home cardiac medications include none Most recent echocardiogram obtained in 2018 revealed ejection fraction 50-55%, mild mitral regurgitation, mild tricuspid regurgitation Patient underwent Lexiscan stress test in December 2014 revealing small sized fixed perfusion defect in the inferior basal segment suggestive of soft tissue artifact. No evidence of acute ischemia. REVIEW OF SYSTEMS: At the time of my exam: CONSTITUTIONAL: Denies fever or chills. HEENT: Denies blurred vision, vision changes, or eye pain. Denies hemoptysis CARDIOVASCULAR: Denies chest pain. Denies orthopnea. Denies PND. Denies palpitations RESPIRATORY: Denies shortness of breath. GASTROINTESTINAL: Denies abdominal pain. Denies nausea or vomiting. HEMATOLOGIC: Denies bleeding disorders. GENITOURINARY: Denies any blood in urine. SKIN: Denies pruitis. Denies rash. PHYSICAL EXAM: VITAL SIGNS: Reviewed. GENERAL: Well-developed in no acute distress. HEENT: Head is normocephalic. Pupils are equal, round. Sclerae anicteric. Mucous membranes of the mouth are moist. Neck supple. No JVD or thyromegaly LUNGS: Respirations even and unlabored. Lungs essentially clear to auscultation bilaterally. HEART: Regular rate and rhythm. S1 and S2 heard. ABDOMEN: Soft. Nondistended. Nontender. EXTREMITIES: Normal range of motion. No clubbing or cyanosis. Peripheral pulses intact. 1+ bilateral lower extremity edema with chronic discoloration to right leg noted. NEUROLOGIC: Awake and alert. Oriented x 3. ASSESSMENT: Chest pain History of SVT with previous ablation History of DVT Family history of premature coronary artery disease Nicotine dependence, patient smokes 1 pack per day PLAN: An acute coronary event has been ruled out Obtain 2-D echo to assess cardiac structure and function Smoking cessation recommended Patient to undergo dobutamine stress test today Check d-dimer Further recommendations pending patient course Nurse practitioner note has been reviewed by physician. Signing provider agrees with the documented findings, assessment, and plan of care. Past Medical History Past Medical History: Blood Disorder, Deep Vein Thrombosis (DVT), GERD/Reflux, Osteoarthritis (OA) Additional Past Medical History / Comment(s): SEE DR ERICKSON H&P, FACTOR 5 LEIDEN, DVT X 4 LOWER RT LEG, ulcer to right ankle, History of Any Multi-Drug Resistant Organisms: None Reported Past Surgical History: Orthopedic Surgery Additional Past Surgical History / Comment(s): LOOP RECORDER IMPLANT GANGLION CYST REMOVED RT WRIST, ARTH. SURG X 2 RT KNEE & X1 LT KNEE, left rotator cuff s urgery, Past Anesthesia/Blood Transfusion Reactions: No Reported Reaction Past Psychological History: No Psychological Hx Reported Smoking Status: Current every day smoker Past Alcohol Use History: None Reported Past Drug Use History: None Reported - Past Family History Mother Family Medical History: No Reported History Father Family Medical History: Coronary Artery Disease (CAD) Additional Family Medical History / Comment(s): ETOH use. Still living. Medications and Allergies Home Medications Medication Instructions Recorded Confirmed Type HYDROcodone/APAP 7.5-325MG [[place] 1 tab PO Q6HR PRN 01/12/15 08/29/21 History 7.5-325] Ibuprofen [Motrin] 800 mg PO TID PRN 01/12/15 08/29/21 History Liraglutide [Saxenda] 1.8 mg SQ DAILY 08/29/21 08/29/21 History Omeprazole 40 mg PO DAILY 08/29/21 08/29/21 History Sildenafil Citrate 100 mg PO DAILY PRN 08/29/21 08/29/21 History Allergies Allergy/AdvReac Type Severity Reaction Status Date / Time silver sulfadiazine Allergy Rash/Hives Verified 08/29/21 20:24 [From Silvadene] adhesive AdvReac Rash/Hives Verified 08/29/21 20:24 Physical Exam Vitals: Vital Signs Temp Pulse Resp BP Pulse Ox 08/30/21 06:08 97.9 F 66 16 140/88 96 08/30/21 05:45 71 16 100 08/30/21 04:00 68 16 130/82 100 08/29/21 23:00 72 18 144/88 97 08/29/21 20:13 74 18 141/77 97 08/29/21 19:10 98.4 F 76 18 119/86 96 Intake and Output 08/29/21 08/30/21 08/30/21 22:59 06:59 14:59 Other: Weight 129.274 kg Results 08/29/21 19:45 08/29/21 19:45 Cardiac Enzymes 08/29/21 08/29/21 08/29/21 Range/Units 19:45 19:45 21:25 AST 29 (17-59) U/L Troponin I 0.014 0.027 (0.000-0.034) ng/mL 08/30/21 Range/Units 00:02 AST (17-59) U/L Troponin I 0.022 (0.000-0.034) ng/mL Coagulation 08/29/21 Range/Units 19:45 PT 9.8 (9.0-12.0) sec APTT 28.7 (22.0-30.0) sec CBC 08/29/21 Range/Units 19:45 WBC 9.2 (3.8-10.6) k/uL RBC 5.33 (4.30-5.90) m/uL Hgb 16.4 (13.0-17.5) gm/dL Hct 47.0 (39.0-53.0) % Plt Count 239 (150-450) k/uL Comprehensive Metabolic Panel 08/29/21 Range/Units 19:45 Sodium 135 L (137-145) mmol/L Potassium 4.5 (3.5-5.1) mmol/L Chloride 103 (98-107) mmol/L Carbon Dioxide 21 L (22-30) mmol/L BUN 17 (9-20) mg/dL Creatinine 1.22 (0.66-1.25) mg/dL Glucose 109 H (74-99) mg/dL Calcium 9.1 (8.4-10.2) mg/dL AST 29 (17-59) U/L ALT 17 (4-49) U/L Alkaline Phosphatase 83 (38-126) U/L Total Protein 7.3 (6.3-8.2) g/dL Albumin 4.3 (3.5-5.0) g/dL Current Medications Generic Name Dose Route Start Last Admin Trade Name Freq PRN Reason Stop Dose Admin Acetaminophen 650 mg 08/30/21 06:26 Acetaminophen Tab 325 Mg Tab PO Q6HR PRN Fever and/ or Pain Aspirin 325 mg 08/30/21 09:00 Aspirin 325 Mg Tab PO DAILY [facility] Famotidine 20 mg 08/30/21 09:00 Famotidine 20 Mg/2 Ml Vial IV Q12HR [facility] Heparin Sodium (Porcine) 5,000 unit 08/30/21 09:00 Heparin Sodium,Porcine/Pf 5,000 Unit/0.5 Ml Syringe SQ Q12HR [facility] Sodium Chloride 1,000 mls @ 20 mls/hr 08/29/21 21:00 08/29/21 22:09 Saline 0.9% IV 20 mls/hr .Q24H [facility] Administration Sodium Chloride 1,000 mls @ 75 mls/hr 08/30/21 08:00 Saline 0.9% IV .[id number] [facility] Nitroglycerin 1 inch 08/29/21 21:00 08/30/21 06:24 Nitroglycerin Oint 1 Inch/Gm Packet TOPICAL 1 inch Q6HR [facility] Administration Intake and Output 08/29/21 08/30/21 08/30/21 22:59 06:59 14:59 Other: Weight 129.274 kg 08/29/21 19:45 08/29/21 19:45
--- NOTE | 2021-08-30 10:31 | ECHOF ---
Referral Reason:Rule out heart disease MEASUREMENTS -------- HEIGHT: 182.9 cm WEIGHT: 129.3 kg BP: RVIDd: 2.5 cm (< 3.3) IVSd: 1.3 cm (0.6 - 1.1) LVIDd: 4.1 cm (3.9 - 5.3) LVPWd: 1.3 cm (0.6 - 1.1) IVSs: 1.8 cm LVIDs: 3.4 cm LVPWs: 1.2 cm LA Diam: 3.7 cm (2.7 - 3.8) Ao Diam: 3.1 cm (2.0 - 3.7) AV Cusp: 2.2 cm (1.5 - 2.6) MV EXCURSION: 16.323 mm (> 18.000) MV EF SLOPE: 107 mm/s (70 - 150) EPSS: 0.4 cm MV E Leo: 0.59 m/s MV DecT: 247 ms MV A Leo: 0.83 m/s MV E/A Ratio: 0.71 RAP: 5.00 mmHg RVSP: 16.11 mmHg FINDINGS -------- Sinus rhythm. This was a technically adequate study. The left ventricular size is normal. There is mild concentric left ventricular hypertrophy. Overa ll left ventricular systolic function is low-normal with, an EF between 50 - 55 %. The right ventricle is normal in size. The left atrial size is normal. The right atrial size is normal. The aortic valve is trileaflet, and appears structurally normal. No aortic stenosis or regurgitation. There is trace mitral regurgitation. Mild tricuspid regurgitation present. Right ventricular systolic pressure is normal at < 35 mmHg. The pulmonic valve was not well visualized. There is no pericardial effusion. CONCLUSIONS -------- 1. The left ventricular size is normal. 2. There is mild concentric left ventricular hypertrophy. 3. Overall left ventricular systolic function is low-normal with, an EF between 50 - 55 %. 4. The right ventricle is normal in size. 5. The left atrial size is normal. 6. The right atrial size is normal. 7. The aortic valve is trileaflet, and appears structurally normal. No aortic stenosis or regurgitati on. 8. There is trace mitral regurgitation. 9. Mild tricuspid regurgitation present. 10. The pulmonic valve was not well visualized. 11. There is no pericardial effusion. CAMP COUNSELOR: Yola Montano RDCS
[2021-08-30] MEDS ORDERED: DOBUTamine DRIP for NUC MED 500 MG/250 ML BAG IV ONE (11:15)
[2021-08-30 11:37] LABS: Chol/HDL Ratio 6.14 Ratio; LDL Cholesterol,Calculated 151.2 mg/dL (0.0-131.0)
[2021-08-30 11:59] LABS: Basophils % (A) 0 %; Eosinophils # (A) 0.1 k/uL (0-0.7); Eosinophils % (A) 1 %; HCT 47.1 % (39.0-53.0); HGB 16.1 gm/dL (13.0-17.5); Lymphocytes # (A) 2.2 k/uL (1.0-4.8); Lymphocytes % (A) 25 %; MCH 30.5 pg (25.0-35.0); MCHC 34.1 g/dL (31.0-37.0); MCV 89.3 fL (80.0-100.0); Mean Platelet Volume 7.3; Monocytes # (A) 0.5 k/uL (0-1.0); Monocytes % (A) 6 %; Neutrophils # (A) 5.8 k/uL (1.3-7.7); Neutrophils % (A) 66 %; Platelet Count 208 k/uL (150-450); RBC 5.27 m/uL (4.30-5.90); RDW 12.3 % (11.5-15.5); WBC 8.7 k/uL (3.8-10.6)
[2021-08-30 12:12] LABS: African American GFR (CKD) 83 (>60 ml/min/1.73 sqM); Anion Gap 7 mmol/L; Blood Urea Nitrogen 16 mg/dL (9-20); Calcium 9.1 mg/dL (8.4-10.2); Carbon Dioxide 28 mmol/L (22-30); Chloride 101 mmol/L (98-107); Glucose 95 mg/dL (74-99); Non-African American GFR(CKD) 72 (>60 ml/min/1.73 sqM); Potassium 4.9 mmol/L (3.5-5.1); Sodium 136 mmol/L (137-145)
[2021-08-30] MEDS ORDERED: ASPIRIN 81 MG ONE (12:18)
--- NOTE | 2021-08-30 13:28 | EST ---
EXERCISE STRESS INDICATIONS: Chest pain BASELINE HEART RATE: 53 BASELINE BLOOD PRESSURE: 108/49 MAXIMUM HEART RATE: 145 MAXIMUM BLOOD PRESSURE: 133/64 85% MPHR: 146 100% MPHR: 172 METS: NA MAXIMUM STAGE REACHED: TOTAL EXERCISE TIME: 10:16 CLINICAL INFORMATION: Baseline EKG shows sinus rhythm, normal axis, normal intervals. Patient was given intravenous dobutamine over a period of 12 minutes as per protocol. He did not have chest pain or diagnostic ST-segment depression. Baseline echo shows normal left ventricular size, wall motion and systolic function. Post exercise there is normal hyperdynamic response of all the segments of myocardium noted. CONCLUSIONS: 1. Negative stress test by EKG criteria. 2. Negative dobutamine stress echo. MMODL / IJN: [id number] /
[2021-08-30 15:11] VITALS: BP 127/74; PULSE 76; TEMP 97.8
--- NOTE | 2021-08-30 22:37 | P.CONS ---
History of Present Illness - Reason for Consult Consult date: 08/30/21 Factor V Leiden, Non-Compliant Requesting physician: Faheem E Sheet - Chief Complaint Chest Pain - History of Present Illness has been admitted for Chest Pain and undergone work-up in emergency. He has a known history of RLE DVT, and recurrent DVTs. According to patient has been prescribed xarelto for approx last 6 years however he admits to non- adherence over the past year. We have been consulted to further evaluate anticoagulation therapy, with a known history of factor V leiden and multiple RLE DVTs, including a chronic RLE DVT still present on imaging. Dr. Porter and myself seen patient and evaluated, a long discussion on all risks of his known high risk predisposition of Factor V Leiden and history of DVTs and not remaining compliant with his prescribed anticoagulant. Patient admits to and acknowledges all risk factors of non adherence and does not provide a reasoning for not taking. Review of Systems All systems: negative Constitutional: Reports as per HPI Past Medical History Past Medical History: Blood Disorder, Deep Vein Thrombosis (DVT), GERD/Reflux, Osteoarthritis (OA), Pneumonia, Supraventricular Tachycardia (SVT), Vascular Disorder Additional Past Medical History / Comment(s): Factor V Leiden, DVT x4 R lower leg/decreased circulation and has had R ankle wounds in the past, SVT with ablation, arthritis bilateral knees, pneumonia with pleurisy. History of Any Multi-Drug Resistant Organisms: None Reported Past Surgical History: Cardiac Ablation, Orthopedic Surgery Additional Past Surgical History / Comment(s): Loop recorder since removed, R wrist ganglion cyst, R knee arthroscopy x2, L knee arthroscopy x1, L rotator cuff surgery, colonoscopy Past Anesthesia/Blood Transfusion Reactions: No Reported Reaction Smoking Status: Current every day smoker - Past Family History Mother Family Medical History: Respiratory Disorder Additional Family Medical History / Comment(s): Mother is . She had lung disease. Father Family Medical History: Coronary Artery Disease (CAD), Myocardial Infarction ([place]) Additional Family Medical History / Comment(s): Father is alive. He had [place] in his 30s. Etoh abuse. Medications and Allergies Home Medications Medication Instructions Recorded Confirmed Type HYDROcodone/APAP 7.5-325MG [[place] 1 tab PO Q6HR PRN 01/12/15 08/29/21 History 7.5-325] Liraglutide [Saxenda] 1.8 mg SQ DAILY 08/29/21 08/29/21 History Omeprazole 40 mg PO DAILY 08/29/21 08/29/21 History Aspirin 81 mg PO DAILY #90 tab 08/30/21 Rx Allergies Allergy/AdvReac Type Severity Reaction Status Date / Time silver sulfadiazine Allergy Rash/Hives Verified 08/29/21 20:24 [From Silvadene] adhesive AdvReac Rash/Hives Verified 08/29/21 20:24 Physical Exam Vitals: Vital Signs Temp Pulse Pulse Resp BP BP Pulse Ox 08/30/21 14:00 66 16 08/30/21 10:50 66 16 08/30/21 09:57 98.0 F 66 16 110/75 97 08/30/21 06:08 97.9 F 66 16 140/88 96 08/30/21 05:45 71 16 100 08/30/21 04:00 68 16 130/82 100 08/29/21 23:00 72 18 144/88 97 08/29/21 20:13 74 18 141/77 97 08/29/21 19:10 98.4 F 76 18 119/86 96 Intake and Output 08/29/21 08/30/21 08/30/21 22:59 06:59 14:59 Intake Total 300 Balance 300 Intake: Oral 300 Other: Voiding Method Toilet # Voids 1 Weight 129.274 kg 129.27 kg - Constitutional General appearance: cooperative, no acute distress - EENT Eyes: EOMI, PERRLA ENT: NA/AT - Neck Neck: normal ROM - Respiratory Respiratory: bilateral: CTA - Cardiovascular Rhythm: regularly irregular - Gastrointestinal General gastrointestinal: normal bowel sounds, soft - Integumentary Integumentary: pale - Neurologic Neurologic: CNII-XII intact - Musculoskeletal Musculoskeletal: generalized weakness, strength equal bilaterally - Psychiatric Psychiatric: A&O x's 3, appropriate affect, intact judgment & insight Results CBC & Chem 7: 08/30/21 11:08 08/30/21 11:08 Labs: Abnormal Lab Results - Last 24 Hours (Table) 08/29/21 08/30/21 08/30/21 Range/Units 19:45 07:15 11:08 Sodium 135 L 136 L (137-145) mmol/L Carbon Dioxide 21 L (22-30) mmol/L Glucose 109 H (74-99) mg/dL Cholesterol 210.00 H (0.00-200.00) mg/dL LDL Cholesterol, Calc 151.2 H (0.0-131.0) mg/dL HDL Cholesterol 34.20 L (40.00-60.00) mg/dL Venous US: report reviewed Assessment and Plan (1) ACS (acute coronary syndrome) Status: Acute Code(s): I24.9 - ACUTE ISCHEMIC HEART DISEASE, UNSPECIFIED SNOMED Code(s): 347021343 (2) Venous stasis ulcer of right lower extremity Status: Acute Code(s): I83.019 - VARICOSE VEINS OF RIGHT LOWER EXTREMITY W ULCER OF UNSP SITE SNOMED Code(s): 160802398 Plan: Long discussion on the importance of adherence to anticoagulation and risks of non adherence. Patient openly understands all risks. Recommendation to continue on xarelto and under Dr. Lynch care. Physician Attest: I have completed the full history and physical and agree with above dictation, dictated as a scribe.
--- NOTE | 2021-08-31 08:02 | P.DS ---
Providers Date of admission: 08/29/21 20:57 Attending physician: Frida Polk Consults: 08/30/21 10:33 Consult Physician Urgent Consulting Provider: Omkar Porter Consult Reason/Comments: F. V leidin deficiency , non compliant with xarelto Do you want consulting provider notified?: Yes Primary care physician: Timothy Lynch [facility] Course: Patient left AGAINST MEDICAL ADVICE before I have a chance to talk to him or see him. Risks are explained to him by staff. Please refer to H&P for more details Patient Condition at Discharge: Good Plan - Discharge Summary Discharge Rx Participant: No New Discharge Prescriptions: New Aspirin 81 mg PO DAILY #90 tab Continue HYDROcodone/APAP 7.5-325MG [[place] 7.5-325] 1 tab PO Q6HR PRN PRN Reason: Pain Liraglutide [Saxenda] 1.8 mg SQ DAILY Omeprazole 40 mg PO DAILY Discontinued Ibuprofen [Motrin] 800 mg PO TID PRN PRN Reason: Pain Sildenafil Citrate 100 mg PO DAILY PRN PRN Reason: E.D. Discharge Medication List HYDROcodone/APAP 7.5-325MG [[place] 7.5-325] 1 tab PO Q6HR PRN 01/12/15 [History] Liraglutide [Saxenda] 1.8 mg SQ DAILY 08/29/21 [History] Omeprazole 40 mg PO DAILY 08/29/21 [History] Aspirin 81 mg PO DAILY #90 tab 08/30/21 [Rx] Follow up Appointment(s)/Referral(s): Castro Erickson MD [STAFF PHYSICIAN] - 1 Week Omkar Porter MD [STAFF PHYSICIAN] - 2 Weeks (vocational rehabilitation counselor) [facility] - 1-2 days Discharge Disposition: Left Against Medical Advice
[2021-08-31] MEDS ORDERED: ASPIRIN 81 MG PO SCH (09:00)
== END 2021-08-30 19:40 | disposition left against medical advice (07) ==
LOC: EC 19:04 → 6NMEDSUR 20:57
PROVIDERS: ADMIT Hospitalist; ATTEND Hospitalist
DX: R07.89 Other chest pain (principal); D68.51 Activated protein C resistance; I82.501 Chronic embolism and thrombosis of unspecified deep veins of right lower extremity; I83.019 Varicose veins of right lower extremity with ulcer of unspecified site; L97.919 Non-pressure chronic ulcer of unspecified part of right lower leg with unspecified severity; I08.1 Rheumatic disorders of both mitral and tricuspid valves; K21.9 Gastro-esophageal reflux disease without esophagitis; M17.0 Bilateral primary osteoarthritis of knee; I47.1 Supraventricular tachycardia; R51.9 Headache, unspecified; M25.512 Pain in left shoulder; E66.9 Obesity, unspecified; Z68.36 Body mass index [BMI] 36.0-36.9, adult; F17.210 Nicotine dependence, cigarettes, uncomplicated; Z91.14 Patient's other noncompliance with medication regimen; Z53.29 Procedure and treatment not carried out because of patient's decision for other reasons; Z20.822 Contact with and (suspected) exposure to COVID-19; Z79.899 Other long term (current) drug therapy; Z88.3 Allergy status to other anti-infective agents; Z91.048 Other nonmedicinal substance allergy status; Z98.890 Other specified postprocedural states; Z87.01 Personal history of pneumonia (recurrent); Z83.6 Family history of other diseases of the respiratory system; Z81.1 Family history of alcohol abuse and dependence; Z82.49 Family history of ischemic heart disease and other diseases of the circulatory system; Z71.6 Tobacco abuse counseling
CPT/HCPCS: 96372; 96374; 99285; 36415; 93005; 93306; 93351; 85379; 80061; 80053; 80048; 83735; 84484 ×2; 85025 ×2; 85610; 85730; 87635; 71046; 93970; G0378 ×2; J1250; J1644

== ENCOUNTER 2021-09-07 12:45 | Inpatient (IN) | payer OTHER ==
[2021-09-07] MEDS ORDERED: NITROGLYCERIN OINT 1 INCH/GM PACKET TOPICAL STA (13:18)
[2021-09-07] MEDS ORDERED: SODIUM CHLORIDE 0.9% 500 ML 500 ML IV STA (13:18)
[2021-09-07] MEDS ORDERED: ASPIRIN 81 MG PO STA (13:18)
--- NOTE | 2021-09-07 13:27 | ED ---
General Adult HPI - General Chief complaint: Chest Pain Stated complaint: Chest pain re-check Time Seen by Provider: 09/07/21 13:00 Source: patient, RN notes reviewed, old records reviewed Mode of arrival: wheelchair Limitations: no limitations - History of Present Illness Initial comments: This is a 51-year-old male presents emergency department with past medical history significant for smoking and a strong family history of heart disease. Patient states she was here approximately a week ago and eventually left AMA because he felt they were taking too long to discharge. Patient states he had a stress test and echo. In states that they were normal. Patient states he was experiencing some chest discomfort a couple times this week but there was very short lived. Patient states today the chest pain came radiated down his left arm and it made him mildly short of breath per patient states the pain still is ongoing. Patient describes the pain as pressure. Patient denies any recent fever chills or cough. Patient denies any abdominal pain. Patient denies nausea vomiting diarrhea. Patient denies headache patient denies lightheadedness patient denies near syncopal episode. Patient states he has some swelling of his right leg secondary to a chronic DVT for which she is taking Xarelto. Patient states she has a factor V leiden deficiency. - Related Data Home Medications Medication Instructions Recorded Confirmed HYDROcodone/APAP 7.5-325MG [[place] 1 tab PO Q8H PRN 01/12/15 09/07/21 7.5-325] Liraglutide [Saxenda] 2.4 mg SQ DAILY 08/29/21 09/07/21 Omeprazole 40 mg PO DAILY 08/29/21 09/07/21 Ibuprofen [Motrin] 800 mg PO TID PRN 09/07/21 09/07/21 Rivaroxaban [Xarelto] 20 mg PO DAILY 09/07/21 09/07/21 Sildenafil Citrate 50 - 100 mg PO DAILY PRN 09/07/21 09/07/21 Allergies Allergy/AdvReac Type Severity Reaction Status Date / Time adhesive Allergy Rash/Hives Verified 09/07/21 13:32 silver sulfadiazine Allergy Rash/Hives Verified 09/07/21 13:32 [From [facility]] Review of Systems ROS Statement: Those systems with pertinent positive or pertinent negative responses have been documented in the HPI. ROS Other: All systems not noted in ROS Statement are negative. Past Medical History Past Medical History: Blood Disorder, Deep Vein Thrombosis (DVT), GERD/Reflux, Osteoarthritis (OA), Pneumonia, Supraventricular Tachycardia (SVT), Vascular Disorder Additional Past Medical History / Comment(s): Factor V Leiden, DVT x4 R lower leg/decreased circulation and has had R ankle wounds in the past, SVT with ab lation, arthritis bilateral knees, pneumonia with pleurisy. History of Any Multi-Drug Resistant Organisms: None Reported Past Surgical History: Cardiac Ablation, Orthopedic Surgery Additional Past Surgical History / Comment(s): Loop recorder since removed, R wrist ganglion cyst, R knee arthroscopy x2, L knee arthroscopy x1, L rotator cuff surgery, colonoscopy Past Anesthesia/Blood Transfusion Reactions: No Reported Reaction Past Psychological History: No Psychological Hx Reported Smoking Status: Current every day smoker Past Alcohol Use History: None Reported Past Drug Use History: None Reported - Past Family History Mother Family Medical History: Respiratory Disorder Additional Family Medical History / Comment(s): Mother is . She had lung disease. Father Family Medical History: Coronary Artery Disease (CAD), Myocardial Infarction ([place]) Additional Family Medical History / Comment(s): Father is alive. He had [place] in his 30s. Etoh abuse. General Exam - General Exam Comments Initial Comments: GENERAL: Patient is well-developed and well-nourished. Patient is nontoxic and well- hydrated and is in mild distress. ENT: Neck is soft and supple. No significant lymphadenopathy is noted. Oropharynx is clear. Moist mucous membranes. Neck has full range of motion without elic iting any pain. EYES: The sclera were anicteric and conjunctiva were pink and moist. Extraocular movements were intact and pupils were equal round and reactive to light. Eyelids were unremarkable. PULMONARY: Unlabored respirations. Good breath sounds bilaterally. No audible rales rhonchi or wheezing was noted. CARDIOVASCULAR: There is a regular rate and rhythm without any murmurs gallops or rubs. ABDOMEN: Soft and nontender with normal bowel sounds. SKIN: Skin is clear with no lesions or rashes and otherwise unremarkable. NEUROLOGIC: Patient is alert and oriented x3. Cranial nerves II through XII are grossly intact. Motor and sensory are also intact. Normal speech, volume and content. Symmetrical smile. MUSCULOSKELETAL: Normal extremities with adequate strength and full range of motion. There is no calf tenderness or pedal edema bilaterally LYMPHATICS: No significant lymphadenopathy is noted PSYCHIATRIC: Normal psychiatric evaluation. Limitations: no limitations Course Vital Signs 09/07/21 12:56 Temperature 98.7 F Pulse Rate 82 Respiratory 16 Rate Blood Pressure 149/89 O2 Sat by Pulse 99 Oximetry Medical Decision Making - Medical Decision Making EKG shows normal sinus rhythm 82 bpm [place] interval 254 QRS is 94 QT interval 364 QTC is 425. Patient's EKG is of poor quality but there is no obvious ST segment elevation or depression. Patient states she has no symptoms of COVID. He does qualify monoclonal antibodies and he received monoclonal antibodies in the emergency department and was admitted for his chest pain. [facility] to the patient wrote admitting orders. Patient is not being admitted for COVID is being admitted first chest pain. Patient was already on Xarelto and so patient did not receive any heparin. Patient was considered unstable angina I spoke with cardiology and he agreed to see the patient on consult. EKG is repeated and shows normal sinus rhythm at 82 bpm IL interval 252 QRS is 96 QT interval 362 QTC is 422. Patient's EKG shows no ST segment elevation or depression. - Lab Data Result diagrams: 09/07/21 14:22 09/07/21 14:22 Lab Results 09/07/21 09/07/21 09/07/21 Range/Units 14:22 14:22 14:22 WBC 9.0 (3.8-10.6) k/uL RBC 5.30 (4.30-5.90) m/uL Hgb 16.1 (13.0-17.5) gm/dL Hct 47.0 (39.0-53.0) % MCV 88.5 (80.0-100.0) fL MCH 30.3 (25.0-35.0) pg MCHC 34.3 (31.0-37.0) g/dL RDW 12.3 (11.5-15.5) % Plt Count 204 (150-450) k/uL MPV 7.6 Neutrophils % 83 % Lymphocytes % 10 % Monocytes % 6 % Eosinophils % 1 % Basophils % 0 % Neutrophils # 7.5 (1.3-7.7) k/uL Lymphocytes # 0.9 L (1.0-4.8) k/uL Monocytes # 0.5 (0-1.0) k/uL Eosinophils # 0.0 (0-0.7) k/uL Basophils # 0.0 (0-0.2) k/uL PT 12.2 H (9.0-12.0) sec INR 1.2 H (<1.2) APTT 36.0 H (22.0-30.0) sec Sodium 136 L (137-145) mmol/L Potassium 4.1 (3.5-5.1) mmol/L Chloride 102 (98-107) mmol/L Carbon Dioxide 24 (22-30) mmol/L Anion Gap 10 mmol/L BUN 14 (9-20) mg/dL Creatinine 1.03 (0.66-1.25) mg/dL Est GFR (CKD-EPI)AfAm >90 (>60 ml/min/1.73 sqM) Est GFR (CKD-EPI)NonAf 85 (>60 ml/min/1.73 sqM) Glucose 102 H (74-99) mg/dL Calcium 9.1 (8.4-10.2) mg/dL Magnesium 1.9 (1.6-2.3) mg/dL Total Bilirubin 0.6 (0.2-1.3) mg/dL AST 36 (17-59) U/L ALT 19 (4-49) U/L Alkaline Phosphatase 91 (38-126) U/L Troponin I (0.000-0.034) ng/mL Total Protein 7.3 (6.3-8.2) g/dL Albumin 4.3 (3.5-5.0) g/dL Coronavirus (PCR) (Not Detectd) 09/07/21 09/07/21 Range/Units 14:22 14:28 WBC (3.8-10.6) k/uL RBC (4.30-5.90) m/uL Hgb (13.0-17.5) gm/dL Hct (39.0-53.0) % MCV (80.0-100.0) fL MCH (25.0-35.0) pg MCHC (31.0-37.0) g/dL RDW (11.5-15.5) % Plt Count (150-450) k/uL MPV Neutrophils % % Lymphocytes % % Monocytes % % Eosinophils % % Basophils % % Neutrophils # (1.3-7.7) k/uL Lymphocytes # (1.0-4.8) k/uL Monocytes # (0-1.0) k/uL Eosinophils # (0-0.7) k/uL Basophils # (0-0.2) k/uL PT (9.0-12.0) sec INR (<1.2) APTT (22.0-30.0) sec Sodium (137-145) mmol/L Potassium (3.5-5.1) mmol/L Chloride (98-107) mmol/L Carbon Dioxide (22-30) mmol/L Anion Gap mmol/L BUN (9-20) mg/dL Creatinine (0.66-1.25) mg/dL Est GFR (CKD-EPI)AfAm (>60 ml/min/1.73 sqM) Est GFR (CKD-EPI)NonAf (>60 ml/min/1.73 sqM) Glucose (74-99) mg/dL Calcium (8.4-10.2) mg/dL Magnesium (1.6-2.3) mg/dL Total Bilirubin (0.2-1.3) mg/dL AST (17-59) U/L ALT (4-49) U/L Alkaline Phosphatase (38-126) U/L Troponin I 0.391 H* (0.000-0.034) ng/mL Total Protein (6.3-8.2) g/dL Albumin (3.5-5.0) g/dL Coronavirus (PCR) Detected A (Not Detectd) Critical Care Time Critical Care Time: Yes Total Critical Care Time: 35 Disposition Clinical Impression: COVID-19, Acute non-ST elevation myocardial infarction (NSTEMI) Disposition: ADMITTED IP TO THIS HOSP Referrals: Timothy Lynch III, MD [Primary Care Provider] - 1-2 days Time of Disposition: 14:57
[2021-09-07 14:36] LABS: Basophils % (A) 0 %; Eosinophils % (A) 1 %; HGB 16.1 gm/dL (13.0-17.5); Lymphocytes # (A) 0.9 k/uL (1.0-4.8); Lymphocytes % (A) 10 %; MCH 30.3 pg (25.0-35.0); MCHC 34.3 g/dL (31.0-37.0); MCV 88.5 fL (80.0-100.0); Mean Platelet Volume 7.6; Monocytes # (A) 0.5 k/uL (0-1.0); Monocytes % (A) 6 %; Neutrophils # (A) 7.5 k/uL (1.3-7.7); Neutrophils % (A) 83 %; Platelet Count 204 k/uL (150-450); RDW 12.3 % (11.5-15.5)
--- NOTE | 2021-09-07 14:39 | XR ---
EXAMINATION TYPE: XR chest 2V DATE OF EXAM: 09/07/2021 COMPARISON: 08/29/2021 HISTORY: 51-year-old male with chest pain TECHNIQUE: PA and lateral views FINDINGS: Heart normal size. Aorta and pulmonary vasculature within normal limits. Mild interstitial prominence and mild peribronchial cuffing. No sparkle consolidation or pleural effusion. Some strandy atelectasis at the left base. IMPRESSION: Mild interstitial prominence and peribronchial cuffing. Correlate for bronchitis, asthma, or atypical pneumonias.
[2021-09-07 14:45] LABS: ALT 19 U/L (4-49); AST 36 U/L (17-59); African American GFR (CKD) >90 (>60 ml/min/1.73 sqM); Albumin 4.3 g/dL (3.5-5.0); Alkaline Phosphatase 91 U/L (38-126); Anion Gap 10 mmol/L; Blood Urea Nitrogen 14 mg/dL (9-20); Calcium 9.1 mg/dL (8.4-10.2); Carbon Dioxide 24 mmol/L (22-30); Chloride 102 mmol/L (98-107); Glucose 102 mg/dL (74-99); Magnesium 1.9 mg/dL (1.6-2.3); Non-African American GFR(CKD) 85 (>60 ml/min/1.73 sqM); Potassium 4.1 mmol/L (3.5-5.1); Sodium 136 mmol/L (137-145); Total Bilirubin 0.6 mg/dL (0.2-1.3); Total Protein 7.3 g/dL (6.3-8.2)
[2021-09-07 14:59] LABS: INR 1.2 (<1.2); Prothrombin Time 12.2 sec (9.0-12.0)
[2021-09-07] MEDS ORDERED: NITROGLYCERIN SL TABS 0.4 MG TAB SUBLINGUAL PRN (14:59)
[2021-09-07] MEDS ORDERED: HEPARIN SODIUM 1,000 UN/ML (10ML VL) IV ONE ×2 (15:10→17:12)
[2021-09-07] MEDS ORDERED: HEPARIN SOD,PORK IN 0.45% NACL 25,000 UNIT in 0.45% NACL 1 250ML.BAG IV SCH (15:15)
[2021-09-07] MEDS ORDERED: SODIUM CHLORIDE 0.9% 50 ML IVPB ONE (15:30)
[2021-09-07] MEDS ORDERED: BAMLANIVIMAB (EUA) 700 MG, ETESEVIMAB (EUA) 1,400 MG in SODIUM CHLORIDE 0.9% 100 ML IVPB ONE (15:45)
[2021-09-07] MEDS: ATORVASTATIN 80 MG TAB PO SCH (17:45)
[2021-09-07] MEDS: METOPROLOL TARTRATE 25 MG TAB PO SCH (17:45)
[2021-09-07] MEDS: NITROGLYCERIN OINT 1 INCH/GM PACKET TOPICAL SCH (17:47)
[2021-09-07] MEDS: HEPARIN SOD,PORK IN 0.45% NACL 25,000 UNIT in 0.45% NACL 1 250ML.BAG IV SCH (17:59)
[2021-09-07 19:04] LABS: Basophils % (A) 0 %; Eosinophils # (A) 0.1 k/uL (0-0.7); Eosinophils % (A) 1 %; HGB 14.6 gm/dL (13.0-17.5); Lymphocytes # (A) 1.8 k/uL (1.0-4.8); Lymphocytes % (A) 20 %; MCH 29.9 pg (25.0-35.0); MCHC 33.3 g/dL (31.0-37.0); Mean Platelet Volume 7.9; Monocytes # (A) 0.5 k/uL (0-1.0); Monocytes % (A) 5 %; Neutrophils # (A) 6.6 k/uL (1.3-7.7); Neutrophils % (A) 72 %; Platelet Count 203 k/uL (150-450); RBC 4.88 m/uL (4.30-5.90); RDW 12.4 % (11.5-15.5); WBC 9.2 k/uL (3.8-10.6)
[2021-09-07 19:14] LABS: INR 1.2 (<1.2); Partial Thromboplastin Time 77.6 sec (22.0-30.0); Prothrombin Time 12.3 sec (9.0-12.0)
[2021-09-08] MEDS: NITROGLYCERIN OINT 1 INCH/GM PACKET TOPICAL SCH ×5 (00:08→22:42)
[2021-09-08] MEDS: HEPARIN SODIUM 1,000 UN/ML (10ML VL) IV PRN ×2 (01:09→12:03)
[2021-09-08 06:03] LABS: Basophils % (A) 0 %; Eosinophils % (A) 0 %; HCT 44.8 % (39.0-53.0); Lymphocytes # (A) 1.9 k/uL (1.0-4.8); Lymphocytes % (A) 19 %; MCH 29.9 pg (25.0-35.0); MCHC 33.6 g/dL (31.0-37.0); MCV 89.2 fL (80.0-100.0); Mean Platelet Volume 7.6; Monocytes # (A) 0.7 k/uL (0-1.0); Monocytes % (A) 7 %; Neutrophils # (A) 6.9 k/uL (1.3-7.7); Neutrophils % (A) 72 %; Platelet Count 202 k/uL (150-450); RBC 5.03 m/uL (4.30-5.90); RDW 12.3 % (11.5-15.5); WBC 9.6 k/uL (3.8-10.6)
[2021-09-08 06:49] LABS: INR 1.1 (<1.2); Prothrombin Time 11.1 sec (9.0-12.0)
[2021-09-08] MEDS ORDERED: ASPIRIN 325 MG TAB PO SCH (09:00)
--- NOTE | 2021-09-08 09:15 | P.CRDCN ---
History of Present Illness Consult date: 09/08/21 History of present illness: This is a 51-year-old gentleman with history of SVT with previous ablation who follows the Dr. Erickson. He was admitted to this hospital on of this month with chest pain. Patient also has a factor V deficiency and history of DVT and is to be on anticoagulation therapy. Patient has been noncompliant with taking medication. Patient's cardiac enzymes were negative and patient was evaluated by dobutamine echocardiogram which was negative for ischemia. Patient came to the emergency room yesterday with complaints of recurrence of prolonged chest pain. Initial EKG showed some prominent T. Piyush the anterior leads size to of ischemia. However, subsequent EKG showed normalization rest of the segments with some T-wave inversions in the anterolateral leads. Patient's pain was also resolved and remained stable without any recurrence of chest pain throughout the night patient was treated with nitrates, beta blockers and heparin along with aspirin. Patient remained stable overnight. However is a troponin values went up to 20. Initial was 0. 34. As patient is critically stable, we will continue maximal medical therapy. If patient were to develop any recurrence of chest pain. Patient may need cardiac intervention. Otherwise, we'll continue maximal medical therapy and probably contemplate intervention within a week or 10 days. Patient is not personally examined patient,. Information is gathered from nurses notes and chart and communicate with the patient through the nurse. Prognosis is guarded Review of Systems As per the chart Past Medical History Past Medical History: Blood Disorder, Deep Vein Thrombosis (DVT), GERD/Reflux, Osteoarthritis (OA), Pneumonia, Supraventricular Tachycardia (SVT), Vascular Disorder Additional Past Medical History / Comment(s): Factor V Leiden, DVT x4 R lower leg/decreased circulation and has had R ankle wounds in the past, SVT with ablation, arthritis bilateral knees, pneumonia with pleurisy. History of Any Multi-Drug Resistant Organisms: None Reported Past Surgical History: Cardiac Ablation, Orthopedic Surgery Additional Past Surgical History / Comment(s): Loop recorder since removed, R wrist ganglion cyst, R knee arthroscopy x2, L knee arthroscopy x1, L rotator cuff surgery, colonoscopy Past Anesthesia/Blood Transfusion Reactions: No Reported Reaction Past Psychological History: No Psychological Hx Reported Smoking Status: Current every day smoker Past Alcohol Use History: None Reported Past Drug Use History: None Reported - Past Family History Mother Family Medical History: Respiratory Disorder Additional Family Medical History / Comment(s): Mother is . She had lung disease. Father Family Medical History: Coronary Artery Disease (CAD), Myocardial Infarction ([place]) Additional Family Medical History / Comment(s): Father is alive. He had [place] in his 30s. Etoh abuse. Medications and Allergies Home Medications Medication Instructions Recorded Confirmed Type HYDROcodone/APAP 7.5-325MG [[place] 1 tab PO Q8H PRN 01/12/15 09/07/21 History 7.5-325] Liraglutide [Saxenda] 2.4 mg SQ DAILY 08/29/21 09/07/21 History Omeprazole 40 mg PO DAILY 08/29/21 09/07/21 History Ibuprofen [Motrin] 800 mg PO TID PRN 09/07/21 09/07/21 History Rivaroxaban [Xarelto] 20 mg PO DAILY 09/07/21 09/07/21 History Sildenafil Citrate 50 - 100 mg PO DAILY PRN 09/07/21 09/07/21 History Allergies Allergy/AdvReac Type Severity Reaction Status Date / Time adhesive Allergy Rash/Hives Verified 09/07/21 13:32 silver sulfadiazine Allergy Rash/Hives Verified 09/07/21 13:32 [facility] Physical Exam Vitals: Vital Signs Temp Pulse Resp BP Pulse Ox 09/08/21 06:17 77 16 95 09/07/21 23:47 98.3 F 76 16 138/85 09/07/21 17:52 98.5 F 78 18 135/80 98 09/07/21 16:48 81 18 138/87 97 09/07/21 12:56 98.7 F 82 16 149/89 99 Intake and Output 09/07/21 09/08/21 09/08/21 22:59 06:59 14:59 Intake Total 71.833 Balance 71.833 Intake: Intake, IV Titration 71.833 Amount Heparin Sod,Pork in 0.45% 71.833 NaCl 25,000 unit In 0.45 % NaCl 1 250ml.bag @ 7.93 UNITS/KG/HR 10 mls/hr IV .Q24H [facility] Rx#:[id number] This patient is not personally examined. Information is gathered from the chart Results 09/08/21 05:45 09/07/21 14:22 Cardiac Enzymes 09/07/21 09/07/21 09/07/21 Range/Units 14:22 14:22 16:15 AST 36 (17-59) U/L Troponin I 0.391 H* 6.740 H* (0.000-0.034) ng/mL 09/07/21 Range/Units 18:33 AST (17-59) U/L Troponin I 20.600 H* (0.000-0.034) ng/mL Coagulation 09/07/21 09/07/21 09/07/21 Range/Units 14:22 18:33 23:26 PT 12.2 H 12.3 H (9.0-12.0) sec APTT 36.0 H 77.6 H 39.3 H (22.0-30.0) sec 09/08/21 Range/Units 05:45 PT 11.1 (9.0-12.0) sec APTT (22.0-30.0) sec CBC 09/07/21 09/07/21 09/08/21 Range/Units 14:22 18:33 05:45 WBC 9.0 9.2 9.6 (3.8-10.6) k/uL RBC 5.30 4.88 5.03 (4.30-5.90) m/uL Hgb 16.1 14.6 15.0 (13.0-17.5) gm/dL Hct 47.0 44.0 44.8 (39.0-53.0) % Plt Count 204 203 202 (150-450) k/uL Comprehensive Metabolic Panel 09/07/21 Range/Units 14:22 Sodium 136 L (137-145) mmol/L Potassium 4.1 (3.5-5.1) mmol/L Chloride 102 (98-107) mmol/L Carbon Dioxide 24 (22-30) mmol/L BUN 14 (9-20) mg/dL Creatinine 1.03 (0.66-1.25) mg/dL Glucose 102 H (74-99) mg/dL Calcium 9.1 (8.4-10.2) mg/dL AST 36 (17-59) U/L ALT 19 (4-49) U/L Alkaline Phosphatase 91 (38-126) U/L Total Protein 7.3 (6.3-8.2) g/dL Albumin 4.3 (3.5-5.0) g/dL Current Medications Generic Name Dose Route Start Last Admin Trade Name Kinq PRN Reason Stop Dose Admin Aspirin 81 mg 09/08/21 09:00 Aspirin 81 Mg PO DAILY [facility] Atorvastatin Calcium 80 mg 09/07/21 17:15 09/07/21 17:45 Atorvastatin 80 Mg Tab PO 80 mg DAILY [facility] Administration Heparin Sodium (Porcine) 0 unit 09/07/21 17:12 09/08/21 01:09 Heparin Sodium 1,000 Un/Ml (10ml Vl) IV 3,152 unit PER PROTOCOL PRN Administration Low PTT Protocol Heparin Sodium/Sodium Chloride 250 mls @ 10 mls/hr 09/07/21 17:15 09/08/21 01:10 25,000 unit/ Sodium Chloride IV 9.52 units/kg/hr .Q24H [facility] 12 mls/hr Titration Protocol 7.93 UNITS/KG/HR Metoprolol Tartrate 25 mg 09/07/21 21:00 09/07/21 17:45 Metoprolol Tartrate 25 Mg Tab PO 25 mg BID [facility] Administration Nitroglycerin 0.4 mg 09/07/21 14:59 Nitroglycerin Sl Tabs 0.4 Mg Tab SUBLINGUAL Q5M PRN Chest Pain Nitroglycerin 1 inch 09/07/21 18:00 09/08/21 06:29 Nitroglycerin Oint 1 Inch/Gm Packet TOPICAL 1 inch Q6HR [facility] Administration Intake and Output 09/07/21 09/08/21 09/08/21 22:59 06:59 14:59 Intake Total 71.833 Balance 71.833 Intake: Intake, IV Titration 71.833 Amount Heparin Sod,Pork in 0.45% 71.833 NaCl 25,000 unit In 0.45 % NaCl 1 250ml.bag @ 7.93 UNITS/KG/HR 10 mls/hr IV .Q24H [facility] Rx#:[id number] 09/08/21 05:45 09/07/21 14:22 EKG Interpretations (text) Sinus rhythm with T-wave changes in anterolateral leads. Initial EKG showed some prominent T waves in anterior leads which are peaked in suggestive of possible ischemia Assessment and Plan (1) History of paroxysmal supraventricular tachycardia Current Visit: Yes Status: Acute Code(s): Z86.79 - PERSONAL HISTORY OF OTHER DISEASES OF THE CIRCULATORY SYSTEM SNOMED Code(s): 144738143961550 (2) Acute non-ST elevation myocardial infarction (NSTEMI) Current Visit: Yes Status: Acute Code(s): I21.4 - NON-ST ELEVATION (NSTEMI) MYOCARDIAL INFARCTION SNOMED Code(s): 552570066 (3) COVID-19 Current Visit: Yes Status: Acute Code(s): U07.1 - COVID-19 SNOMED Code(s): 202795669 (4) Factor V deficiency Current Visit: Yes Status: Acute Code(s): D68.2 - HEREDITARY DEFICIENCY OF OTHER CLOTTING FACTORS SNOMED Code(s): 7701165 Plan: Discussed the case with on-call pairer odds. We'll continue with maximal medical therapy including IV heparin, aspirin, beta blockers and nitrates. If patient develops any unstable symptoms, may consider cardiac cath. Otherwise patient could be stabilized for the next week or 10 days and could be constricted for intervention at the time. Echocardiogram to be done
--- NOTE | 2021-09-08 09:20 | P.HPIM ---
History of Present Illness This is a pleasant 50 years old male with past medical history of Deep Vein Thrombosis not on anticoagulation with xarelto , GERD, Osteoarthritis , FACTOR 5 LEIDEN, DVT X 4 LOWER RT LEG, SVT status post ablation and he sees Dr. Medina. Patient presents because of chest pain. Patient was asleep in the hospital on 08/30 for chest pain we had negative stress test and wellness program coordinator signed off. Also hematology saw him for his blood disease and noncompliance and explained the risk for him however patient left AGAINST MEDICAL ADVICE on 08/31. Patient comes back today with central chest pain of one-day duration radiating to the left shoulder and arm reflecting/10 on the presentation now is much better and rates it as 0/10:00 pressure with little burning. Also he is complaining with cough and some phlegm of unknown color flow of one- day duration with no dyspnea. No fever. No abdominal pain or vomiting or diarrhea. No headache or weakness or numbness. No urinary complaints. Patient says that after the hospital last time he started taking Xarelto again. And he was taken with yesterday as he states. He smokes less than pack per day as he states, he was consulted and he agrees to quit. No alcohol or illicit tracts. The presentation his labs including CBC, BMP and liver enzymes were unremarkable however troponin were trending of 0.3, 6.7 and 20.6. His elevated. EKG showing no ST elevation for example normal sinus rhythm at 73 with QTC 401. Chest x-ray: Normal heart. Multiple interstitial prominence and peribronchial cuffing. Correlate for bronchitis, asthma or atypical pneumonia Review of Systems CONSTITUTIONAL: No fever, no malaise, no fatigue. HEENT: No recent visual problems or hearing problems. Denied any sore throat. CARDIOVASCULAR: No orthopnea, PND, no palpitations, no syncope. PULMONARY: No shortness of breath, no hemoptysis. GASTROINTESTINAL: No diarrhea, no nausea, no vomiting, no abdominal pain. Normoactive bowel sounds. NEUROLOGICAL: No headaches, no weakness, no numbness. HEMATOLOGICAL: Denies any bleeding or petechiae. GENITOURINARY: Denies any burning micturition, frequency, or urgency. MUSCULOSKELETAL/RHEUMATOLOGICAL: Denies any joint pain, swelling, or any muscle pain. ENDOCRINE: Denies any polyuria or polydipsia. Past Medical History Past Medical History: Blood Disorder, Deep Vein Thrombosis (DVT), GERD/Reflux, Osteoarthritis (OA), Pneumonia, Supraventricular Tachycardia (SVT), Vascular Disorder Additional Past Medical History / Comment(s): Factor V Leiden, DVT x4 R lower leg/decreased circulation and has had R ankle wounds in the past, SVT with ablation, arthritis bilateral knees, pneumonia with pleurisy. History of Any Multi-Drug Resistant Organisms: None Reported Past Surgical History: Cardiac Ablation, Orthopedic Surgery Additional Past Surgical History / Comment(s): Loop recorder since removed, R wrist ganglion cyst, R knee arthroscopy x2, L knee arthroscopy x1, L rotator cuff surgery, colonoscopy Past Anesthesia/Blood Transfusion Reactions: No Reported Reaction Past Psychological History: No Psychological Hx Reported Smoking Status: Current every day smoker Past Alcohol Use History: None Reported Past Drug Use History: None Reported - Past Family History Mother Family Medical History: Respiratory Disorder Additional Family Medical History / Comment(s): Mother is . She had lung disease. Father Family Medical History: Coronary Artery Disease (CAD), Myocardial Infarction (CT) Additional Family Medical History / Comment(s): Father is alive. He had CT in his 30s. Etoh abuse. Medications and Allergies Home Medications Medication Instructions Recorded Confirmed Type HYDROcodone/APAP 7.5-325MG [[place] 1 tab PO Q8H PRN 01/12/15 09/07/21 History 7.5-325] Liraglutide [Saxenda] 2.4 mg SQ DAILY 08/29/21 09/07/21 History Omeprazole 40 mg PO DAILY 08/29/21 09/07/21 History Ibuprofen [Motrin] 800 mg PO TID PRN 09/07/21 09/07/21 History Rivaroxaban [Xarelto] 20 mg PO DAILY 09/07/21 09/07/21 History Sildenafil Citrate 50 - 100 mg PO DAILY PRN 09/07/21 09/07/21 History Allergies Allergy/AdvReac Type Severity Reaction Status Date / Time adhesive Allergy Rash/Hives Verified 09/07/21 13:32 silver sulfadiazine Allergy Rash/Hives Verified 09/07/21 13:32 [From Anthony] Physical Exam Vitals: Vital Signs Temp Pulse Resp BP Pulse Ox 09/08/21 06:17 77 16 95 09/07/21 23:47 98.3 F 76 16 138/85 09/07/21 17:52 98.5 F 78 18 135/80 98 09/07/21 16:48 81 18 138/87 97 09/07/21 12:56 98.7 F 82 16 149/89 99 Intake and Output 09/07/21 09/08/21 09/08/21 22:59 06:59 14:59 Intake Total 71.833 Balance 71.833 Intake: Intake, IV Titration 71.833 Amount Heparin Sod,Pork in 0.45% 71.833 NaCl 25,000 unit In 0.45 % NaCl 1 250ml.bag @ 7.93 UNITS/KG/HR 10 mls/hr IV .Q24H [facility] Rx#:[id number] GENERAL: The patient is alert and oriented x3, not in any acute distress. Well developed, well nourished. HEENT: Pupils are round and equally reacting to light. EOMI. No scleral icterus. No conjunctival pallor. Normocephalic, atraumatic. No pharyngeal erythema. No thyromegaly. CARDIOVASCULAR: S1 and S2 present. No murmurs, rubs, or gallops. PULMONARY: Chest is clear to auscultation, no wheezing or crackles. ABDOMEN: Soft, nontender, nondistended, normoactive bowel sounds. No palpable organomegaly. MUSCULOSKELETAL: No joint swelling or deformity. EXTREMITIES: No cyanosis, clubbing, or pedal edema. NEUROLOGICAL: Gross neurological examination did not reveal any focal deficits. SKIN: No rashes. No petechiae Results CBC & Chem 7: 09/08/21 05:45 09/07/21 14:22 Labs: Abnormal Lab Results - Last 24 Hours (Table) 09/07/21 09/07/21 09/07/21 Range/Units 14:22 14:22 14:22 Lymphocytes # 0.9 L (1.0-4.8) k/uL PT 12.2 H (9.0-12.0) sec INR 1.2 H (<1.2) APTT 36.0 H (22.0-30.0) sec Sodium 136 L (137-145) mmol/L Glucose 102 H (74-99) mg/dL Troponin I (0.000-0.034) ng/mL Coronavirus (PCR) (Not Detectd) 09/07/21 09/07/21 09/07/21 Range/Units 14:22 14:28 16:15 Lymphocytes # (1.0-4.8) k/uL PT (9.0-12.0) sec INR (<1.2) APTT (22.0-30.0) sec Sodium (137-145) mmol/L Glucose (74-99) mg/dL Troponin I 0.391 H* 6.740 H* (0.000-0.034) ng/mL Coronavirus (PCR) Detected A (Not Detectd) 09/07/21 09/07/21 09/07/21 Range/Units 18:33 18:33 23:26 Lymphocytes # (1.0-4.8) k/uL PT 12.3 H (9.0-12.0) sec INR 1.2 H (<1.2) APTT 77.6 H 39.3 H (22.0-30.0) sec Sodium (137-145) mmol/L Glucose (74-99) mg/dL Troponin I 20.600 H* (0.000-0.034) ng/mL Coronavirus (PCR) (Not Detectd) Assessment and Plan Assessment: Elevated troponin with chest pain concerning for non-STEMI Nicotine dependence noncompliance to therapy of Xarelto for his history of DVT , also last time he left AMA Obesity with BMI of 36.36 History of GERD History of factor V bleeding and the venous thrombosis more than once. History of SVT status post ablation obesity with BMI of 35.7 Plan: This is a pleasant 51 years old male who presents with chest pain and elevated troponin suspicious for metastatic Floor Steward/Stewardess evaluated the patient and recommended conservative management. I'll keep monitoring. Keep the patient on IV heparin, metoprolol and statin. Also he is on aspirin Labs and medication were reviewed.. Continue same treatment. Continue with symptomatic treatment. Resume home medication. Monitor lytes and vitals. DVT and GI prophylaxis. Further recommendations depends on the clinical course of the patient DVT prophylaxis: heparin GI Prophylaxis: Pepcid Prognosis is guarded
[2021-09-08] MEDS: ATORVASTATIN 80 MG TAB PO SCH (09:26)
[2021-09-08] MEDS: ASPIRIN 81 MG PO SCH (09:26)
[2021-09-08] MEDS: METOPROLOL TARTRATE 25 MG TAB PO SCH ×2 (09:28→20:01)
[2021-09-08 09:46] LABS: Chol/HDL Ratio 4.36 Ratio; LDL Cholesterol,Calculated 113.9 mg/dL (0.0-131.0)
--- NOTE | 2021-09-08 11:16 | ECHOF ---
Referral Reason: MEASUREMENTS -------- HEIGHT: 182.9 cm WEIGHT: 126.1 kg BP: RVIDd: 3.0 cm (< 3.3) IVSd: 1.0 cm (0.6 - 1.1) LVIDd: 4.2 cm (3.9 - 5.3) LVPWd: 1.1 cm (0.6 - 1.1) IVSs: 1.6 cm LVIDs: 2.5 cm LVPWs: 1.8 cm RAP: 5.00 mmHg RVSP: 9.71 mmHg FINDINGS -------- Limited Study The left ventricular size is normal. Left ventricular wall thickness is normal. Overall left vent ricular systolic function is mildly impaired with, an EF between 45 - 50 %. Apical septum LV wall m otion is hypokinetic. Lumason used There is no pericardial effusion. CONCLUSIONS -------- 1. The left ventricular size is normal. 2. Left ventricular wall thickness is normal. 3. Overall left ventricular systolic function is mildly impaired with, an EF between 45 - 50 %. 4. Apical septum LV wall motion is hypokinetic. LARYNGOLOGIST: Concepción Medina RDCS
[2021-09-08 11:39] LABS: Partial Thromboplastin Time 39.8 sec (22.0-30.0); Prothrombin Time 10.4 sec (9.0-12.0)
[2021-09-08] MEDS: HEPARIN SOD,PORK IN 0.45% NACL 25,000 UNIT in 0.45% NACL 1 250ML.BAG IV SCH (19:03)
[2021-09-08] MEDS: FAMOTIDINE 20 MG/2 ML VIAL IV SCH (20:02)
[2021-09-09] MEDS: NITROGLYCERIN OINT 1 INCH/GM PACKET TOPICAL SCH ×4 (06:05→23:49)
[2021-09-09] MEDS: ATORVASTATIN 80 MG TAB PO SCH (08:24)
[2021-09-09] MEDS: ASPIRIN 81 MG PO SCH (08:24)
[2021-09-09] MEDS: METOPROLOL TARTRATE 25 MG TAB PO SCH ×2 (08:24→20:06)
[2021-09-09] MEDS: FAMOTIDINE 20 MG/2 ML VIAL IV SCH (08:25)
--- NOTE | 2021-09-09 09:51 | P.PN ---
Progress Note - Text Progress Note Date: 09/09/21 The patient is a 42-year-old gentleman with a past medical history significant for SVT as well as history of hypercoagulopathy was factor V Leiden deficiency who was admitted to the hospital was COVID-19 infection and ruled in for acute coronary syndrome. He remains asymptomatic from a cardiac standpoint of view in terms of chest pain or chest discomfort. He remains hemodynamically stable. The echo showed an EF around 45%. He is on heparin IV. He is on aspirin and high intensity statin. The plan at this point is to continue a conservative medical approach in the absence of any chest pain or chest discomfort. I am going to add Plavix to the current medical regimen. Continue heparin for additional 24 hours and switch him to oral anticoagulation tomorrow since he has hypercoagulopathy. We'll continue following up with him.
[2021-09-09] MEDS: HEPARIN SOD,PORK IN 0.45% NACL 25,000 UNIT in 0.45% NACL 1 250ML.BAG IV SCH (11:11)
[2021-09-09] MEDS: FAMOTIDINE 20 MG TAB PO SCH (20:57)
--- NOTE | 2021-09-10 03:22 | P.PN ---
Subjective This is a pleasant 50 years old male with past medical history of Deep Vein Thrombosis not on anticoagulation with xarelto , GERD, Osteoarthritis , FACTOR 5 LEIDEN, DVT X 4 LOWER RT LEG, SVT status post ablation and he sees Dr. Medina. Patient presents because of chest pain. Patient was asleep in the hospital on 08/30 for chest pain we had negative stress test and hospice patient care secretary signed off. Also hematology saw him for his blood disease and noncompliance and explained the risk for him however patient left AGAINST MEDICAL ADVICE on 08/31. Patient comes back today with central chest pain of one-day duration radiating to the left shoulder and arm reflecting/10 on the presentation now is much better and rates it as 0/10:00 pressure with little burning. Also he is complaining with cough and some phlegm of unknown color flow of one- day duration with no dyspnea. No fever. No abdominal pain or vomiting or diarrhea. No headache or weakness or numbness. No urinary complaints. Patient says that after the hospital last time he started taking Xarelto again. And he was taken with yesterday as he states. He smokes less than pack per day as he states, he was consulted and he agrees to quit. No alcohol or illicit tracts. The presentation his labs including CBC, BMP and liver enzymes were unremarkable however troponin were trending of 0.3, 6.7 and 20.6. His elevated. EKG showing no ST elevation for example normal sinus rhythm at 73 with QTC 401. Chest x-ray: Normal heart. Multiple interstitial prominence and peribronchial cuffing. Correlate for bronchitis, asthma or atypical pneumonia 09/10/2021 Patient presents with chest pain and elevated troponin, patient followed by hospice patient care secretary and currently has been managed conservatively. Today patient remains chest pain free. Denies any other symptoms. Hemodynamically stable. Discussed with cardiology will keep monitoring for now. Talking the patient on heparin drip for 24 hours and possible change to oral anticoagulation tomorrow. Aspirin is restarted. Today Plavix was added Monitor hemoglobin tomorrow Objective - Vital Signs Vital signs: Vital Signs Temp 97.8 F 09/09/21 11:27 Pulse 59 L 09/09/21 11:27 Resp 18 09/09/21 11:27 BP 135/72 09/09/21 11:27 Pulse Ox 99 09/09/21 11:27 Intake & Output 09/08/21 09/09/21 09/09/21 18:59 06:59 18:59 Intake Total 178.167 Balance 178.167 Weight 126.099 kg Intake: Intake, IV Titration 178.167 Amount Heparin Sod,Pork in 0.45% 178.167 NaCl 25,000 unit In 0.45 % NaCl 1 250ml.bag @ 7.93 UNITS/KG/HR 10 mls/hr IV .Q24H [facility] Rx#:[id number] Other: # Voids 1 1 - Exam GENERAL: The patient is alert and oriented x3, not in any acute distress. Well developed, well nourished. HEENT: Pupils are round and equally reacting to light. EOMI. No scleral icterus. No conjunctival pallor. Normocephalic, atraumatic. No pharyngeal erythema. No thyromegaly. CARDIOVASCULAR: S1 and S2 present. No murmurs, rubs, or gallops. PULMONARY: Chest is clear to auscultation, no wheezing or crackles. ABDOMEN: Soft, nontender, nondistended, normoactive bowel sounds. No palpable organomegaly. MUSCULOSKELETAL: No joint swelling or deformity. EXTREMITIES: No cyanosis, clubbing, or pedal edema. NEUROLOGICAL: Gross neurological examination did not reveal any focal deficits. SKIN: No rashes. no petechiae. - Labs CBC & Chem 7: 09/08/21 05:45 09/07/21 14:22 Labs: Abnormal Lab Results - Last 24 Hours (Table) 09/08/21 09/09/21 Range/Units 18:22 07:25 APTT 49.3 H 49.1 H (22.0-30.0) sec Assessment and Plan Assessment: Elevated troponin with chest pain concerning for non-STEMI Nicotine dependence noncompliance to therapy of Xarelto for his history of DVT , also last time he left AMA Obesity with BMI of 36.36 History of GERD History of factor V bleeding and the venous thrombosis more than once. History of SVT status post ablation obesity with BMI of 35.7 Plan: This is a pleasant 51 years old male who presents with chest pain and elevated troponin suspicious for metastatic Food Production Worker evaluated the patient and recommended conservative management. we'll keep monitoring. Keep the patient on IV heparin, metoprolol and statin. Also he is on aspirin. Today Plavix is added. Possible change to oral anticoagulation in 24 hours per hospice patient care secretary Labs and medication were reviewed.. Continue same treatment. Continue with symptomatic treatment. Resume home medication. Monitor lytes and vitals. DVT and GI prophylaxis. Further recommendations depends on the clinical course of the patient DVT prophylaxis: heparin GI Prophylaxis: Pepcid Prognosis is guarded
[2021-09-10] MEDS: NITROGLYCERIN OINT 1 INCH/GM PACKET TOPICAL SCH ×2 (06:18→11:20)
[2021-09-10] MEDS: FAMOTIDINE 20 MG TAB PO SCH (07:26)
[2021-09-10] MEDS: ASPIRIN 81 MG PO SCH (07:26)
[2021-09-10] MEDS: METOPROLOL TARTRATE 25 MG TAB PO SCH (07:26)
[2021-09-10] MEDS: ATORVASTATIN 80 MG TAB PO SCH (07:26)
[2021-09-10] MEDS ORDERED: CLOPIDOGREL 75 MG TAB PO SCH (09:00)
[2021-09-10 09:40] LABS: Basophils % (A) 1 %; Eosinophils # (A) 0.1 k/uL (0-0.7); Eosinophils % (A) 1 %; HCT 44.3 % (39.0-53.0); HGB 14.9 gm/dL (13.0-17.5); Lymphocytes # (A) 2.2 k/uL (1.0-4.8); Lymphocytes % (A) 32 %; MCHC 33.6 g/dL (31.0-37.0); MCV 89.2 fL (80.0-100.0); Mean Platelet Volume 7.8; Monocytes # (A) 0.5 k/uL (0-1.0); Monocytes % (A) 7 %; Neutrophils # (A) 3.9 k/uL (1.3-7.7); Neutrophils % (A) 57 %; Platelet Count 180 k/uL (150-450); RBC 4.97 m/uL (4.30-5.90); RDW 12.3 % (11.5-15.5); WBC 6.8 k/uL (3.8-10.6)
[2021-09-10 11:21] VITALS: BP 118/70; PULSE 65; RESP 16; TEMP 98.2
[2021-09-10 12:15] LABS: ALT 26 U/L (4-49); AST 42 U/L (17-59); African American GFR (CKD) >90 (>60 ml/min/1.73 sqM); Albumin 3.6 g/dL (3.5-5.0); Alkaline Phosphatase 78 U/L (38-126); Anion Gap 5 mmol/L; Blood Urea Nitrogen 13 mg/dL (9-20); Calcium 8.7 mg/dL (8.4-10.2); Carbon Dioxide 27 mmol/L (22-30); Chloride 103 mmol/L (98-107); Glucose 92 mg/dL (74-99); Magnesium 1.9 mg/dL (1.6-2.3); Non-African American GFR(CKD) 83 (>60 ml/min/1.73 sqM); Potassium 4.3 mmol/L (3.5-5.1); Sodium 135 mmol/L (137-145); Total Bilirubin 0.5 mg/dL (0.2-1.3); Total Protein 6.4 g/dL (6.3-8.2)
--- NOTE | 2021-09-10 12:16 | P.PN ---
Subjective Progress Note Date: 09/10/21 Principal diagnosis: Acute coronary syndrome The patient is a pleasant 51-year-old gentleman who was admitted to the hospital was COVID-19 infection complicated by acute coronary syndrome. The patient was treated medically. The patient was seen this morning. He remains chest pain-free. He remains hemodynamically stable. The echo reports an ejection fraction around 45%. C urrently he is on maximize medical treatment including triple therapy with aspirin and Plavix as well to 4 history of factor V Leiden deficiency. The patient is asking to go home. From the cardiac standpoint overview, he can be discharged home as far as he is asymptomatic. Objective - Vital Signs Vital signs: Vital Signs Temp 98.2 F 09/10/21 11:20 Pulse 65 09/10/21 11:20 Resp 16 09/10/21 11:20 BP 118/70 09/10/21 11:20 Pulse Ox 97 09/10/21 11:20 Intake & Output 09/09/21 09/10/21 09/10/21 18:59 06:59 18:59 Intake Total 240 855 Balance 240 855 Intake: IV 240 .9 @ 20 240 Intake, IV Titration 250 Amount Heparin Sod,Pork in 0.45% 250 NaCl 25,000 unit In 0.45 % NaCl 1 250ml.bag @ 7.93 UNITS/KG/HR 10 mls/hr IV .Q24H [facility] Rx#:[id number] Oral 240 365 Other: Voiding Method Toilet # Voids 1 1 - Constitutional General appearance: Present: no acute distress - Respiratory Respiratory: bilateral: CTA - Cardiovascular Rhythm: regular Heart sounds: normal: S1, S2 - Labs CBC & Chem 7: 09/10/21 09:15 09/07/21 14:22 Labs: Abnormal Lab Results - Last 24 Hours (Table) 09/10/21 Range/Units 09:15 APTT 44.7 H (22.0-30.0) sec Assessment and Plan Assessment: Assessment #1 COVID-19 infection #2 acute coronary syndrome #3 history of factor V Leiden deficiency Plan #1 the patient is asking to go home #2 DC the heparin #3 continue dual antiplatelet therapy #4 decrease the dose of Zoloft of to 15 mg by mouth daily #5 continue triple therapy for at least 4 weeks #6 follow-up with the patient
[2021-09-10] MEDS ORDERED: RIVAROXABAN 15 MG TAB PO SCH (17:30)
--- NOTE | 2021-09-10 20:33 | DS ---
DISCHARGE SUMMARY FINAL DIAGNOSIS: 1. Elevated troponin with acute ghe-AQ-ppbvlym-elevation myocardial infarction. 2. Acute COVID-19 infection without any hypoxia. 3. History of nicotine dependence. 4. History of noncompliance. 5. Obesity with body mass index of 36.3. 6. History of gastroesophageal reflux disease. 7. History of factor V Leiden deficiency. 8. History of coronary artery disease, status post ablation. 9. Troponin elevated up to 20.6. 10.Hyponatremia. DISCHARGE DISPOSITION: The patient will be discharged in stable condition with guarded prognosis. The patient is extremely keen on going home. Cardiology cleared the patient for discharge. HISTORY OF PRESENT ILLNESS: This 51-year-old gentleman with a past medical history of multiple medical problems was admitted with chest pain. Troponins were elevated at 20.54538 and the patient also was COVID-19 negative. Cardiology recommended close management and outpatient followup. Patient was treated with anticoagulants. Patient was stable during the hospitalization. As mentioned earlier, patient will be discharged after clearance from Cardiology. On exam, vitals are stable. CARDIOVASCULAR: S1, S2 muffled. ABDOMEN: Soft. NERVOUS SYSTEM: No focal deficit. Please refer to cardiology notes and other progress notes for further details. DISCHARGE ADVICE AND MEDICATIONS: 1. Discharge diet is cardiac. 2. Activity limited until followup. 3. Follow up with Dr. Lynch in 2-3 days. 4. Follow up with Cardiology as recommended. 5. Ibuprofen 800 mg t.i.d. p.r.n. 6. [place] 7.5 q.8 p.r.n. 7. liraglutide 2.4 mg subcutaneously daily. 8. Sildenafil p.r.n. 9. Aspirin 81 mg p.o. daily. 10.Lopressor 12.5 mg p.o. b.i.d. 11.Nitroglycerin 0.4 sublingually p.r.n. 12.Pepcid 20 mg p.o. b.i.d. 13.Plavix 75 mg p.o. daily. 14.Vitamin D3 50 mg p.o. daily. 15.Xarelto 15 mg p.o. with supper. 16.Zinc sulfate 220 mg p.o. daily. Once again, the patient will be discharged in stable condition with guarded prognosis. MMODL / IJN: [id number] / MTDD
== END 2021-09-10 14:05 | disposition home or self-care (01) | DRG 280 ==
LOC: EC 12:45 → 3SCARD 15:00 → 2SICU 18:37 → 3SCARD 09-08 18:02
PROVIDERS: ADMIT Hospitalist; ATTEND Hospitalist
DX: I21.4 Non-ST elevation (NSTEMI) myocardial infarction (principal); U07.1 COVID-19; D68.51 Activated protein C resistance; E87.1 Hypo-osmolality and hyponatremia; I25.110 Atherosclerotic heart disease of native coronary artery with unstable angina pectoris; E66.9 Obesity, unspecified; Z68.36 Body mass index [BMI] 36.0-36.9, adult; F17.210 Nicotine dependence, cigarettes, uncomplicated; M17.0 Bilateral primary osteoarthritis of knee; Z79.01 Long term (current) use of anticoagulants; Z79.82 Long term (current) use of aspirin; Z82.49 Family history of ischemic heart disease and other diseases of the circulatory system; Z86.718 Personal history of other venous thrombosis and embolism; Z91.14 Patient's other noncompliance with medication regimen; Z91.19 Patient's noncompliance with other medical treatment and regimen; K21.9 Gastro-esophageal reflux disease without esophagitis; Z88.2 Allergy status to sulfonamides; Z88.8 Allergy status to other drugs, medicaments and biological substances; Z87.01 Personal history of pneumonia (recurrent)
CPT/HCPCS: 36415; 71046; 80053; 80061; 83735; 84484; 85025; 85379; 85610; 85730; 87635; 93005; 93308; 99291

== ENCOUNTER 2021-09-19 10:40 | Day surgery (SDC) | payer OTHER ==
[~2021-09-19 10:40] MED LIST changes: +ALPRAZolam 0.25 MG TAB PO PRN; +ALPRAZolam 0.5 MG TAB PO PRN; +ASPIRIN 325 MG TAB PO STA; +ATORVASTATIN 80 MG TAB PO ONE; +HEPARIN SODIUM,PORCINE 10,000 UNIT in SODIUM CHLORIDE 0.9% 1,000 ML IRRIGATION PRN; +HEPARIN SODIUM,PORCINE 2,500 UNIT in SODIUM CHLORIDE 0.9% 250 ML IRRIGATION PRN; +NITROGLYCERIN SL TABS 0.4 MG TAB SUBLINGUAL PRN; -SODIUM CHLORIDE 0.9% 1,000 ML IV SCH; -ceFAZolin IN SWFI 2 GM/20 ML SYRINGE IVP ONE
[2021-09-19] MEDS ORDERED: ASPIRIN 81 MG ONE (11:07)
[2021-09-19] MEDS ORDERED: SODIUM CHLORIDE 0.9% 1,000 ML IV ONE (11:07)
[2021-09-19] MEDS ORDERED: VERAPAMIL 2.5 MG/ML 2 ML AMP ONE (11:46)
[2021-09-19] MEDS ORDERED: LIDOCAINE 1% INJ 10MG/ML (20 ML MDV) ONE ×2 (11:46)
[2021-09-19] MEDS: MIDAZOLAM 2 MG/2 ML VIAL IV ONE ×2 (12:00→12:42)
[2021-09-19] MEDS ORDERED: fentaNYL (PF) 50 MCG/ML 2 ML AMP IV ONE (12:03)
[2021-09-19] MEDS ORDERED: LIDOCAINE 1% INJ 10MG/ML (20 ML MDV) SQ ONE (12:04)
[2021-09-19] MEDS ORDERED: fentaNYL (PF) 50 MCG/ML 2 ML AMP ONE (12:04)
[2021-09-19] MEDS ORDERED: HEPARIN SODIUM 1,000 UN/ML (10ML VL) ONE (12:07)
[2021-09-19] MEDS ORDERED: VERAPAMIL SYRINGE (5 MG/10 ML) INTRAARTER ONE (12:12)
[2021-09-19] MEDS ORDERED: niCARdipine 25 MG/10 ML VIAL ONE (12:59)
[2021-09-19] MEDS ORDERED: TIROFIBAN BOLUS 12.5MG/250 ML BAG IV ONE (13:00)
[2021-09-19] MEDS ORDERED: TIROFIBAN 12.5MG-250ML NS 250 ML IV ONE (13:00)
--- NOTE | 2021-09-19 13:00 | LTR ---
DATE OF SERVICE: 09/19/[address] Lynch: I performed cardiac catheterization on Liborio Lopez and a detailed catheterization note is enclosed for your records. In brief, cardiac catheterization reveals 80-90 percent focal stenosis in the mid LAD and patient will undergo angioplasty with stent placement of the same. Thank you for letting us to participate in the care of this pleasant gentleman. Sincerely, ANETTE / ALENAN: [id number] /
--- NOTE | 2021-09-19 13:00 | CC ---
CARDIAC CATHETERIZATION REPORT INDICATION: Post infarct angina in a patient who had recent rox-KT-tqffzru-elevation UT. This is a 51-year-old gentleman who presented to hospital recently with chest pain, had Covid infection and ruled in for myocardial infarction. He was evaluated in the hospital and was treated with medical therapy, became pain-free, went home, came to see me for post hospital followup yesterday and complained of chest discomfort. He was having intermittent episodes of precordial chest pressure. An EKG showed ischemic changes in the precordial leads, due to which I advised him to undergo cardiac catheterization for further evaluation. He has been explained of risks, benefits and alternatives, understood and accepted. PROCEDURE NOTE: After obtaining informed consent, left heart catheterization and coronary angiogram were performed via the right radial artery. A size 3 and half Obie catheter was used to engage the right coronary artery and a size 4 Obie was then used to engage the left coronary artery. Left ventricular pressures were obtained using the pigtail catheter. The patient tolerated the procedure well without any obvious immediate complications. He received conscious sedation. Total sedation time was 26 minutes. The patient was given 5 mg of verapamil to prevent vasospasm and he also received 3000 units of IV heparin. The patient tolerated the procedure well without any obvious immediate complications. FINDINGS: HEMODYNAMICS: Left ventricular end-diastolic pressure is 12 mm. There is no significant gradient across the aortic valve. LEFT VENTRICULOGRAM: Not performed. ANGIOGRAPHIC DATA: LEFT MAIN CORONARY ARTERY: Left main coronary artery is a normal-sized vessel and is free of stenosis. Divides into left anterior descending coronary artery and circumflex coronary artery. CIRCUMFLEX CORONARY ARTERY is a nondominant vessel and is free of significant disease. LEFT ANTERIOR DESCENDING CORONARY ARTERY: LAD shows a focal area of 80-90 percent stenosis in its mid portion. RIGHT CORONARY ARTERY is a large dominant vessel and is free of disease. CONCLUSIONS: 80-90 percent stenosis involving mid LAD. PLAN: Patient will undergo angioplasty with stent placement of the same. MMODL / IJN: [id number] /
[2021-09-19] MEDS ORDERED: CLOPIDOGREL 75 MG TAB ONE (13:05)
[2021-09-19] MEDS ORDERED: CLOPIDOGREL 75 MG TAB PO ONE (13:07)
[2021-09-19] MEDS ORDERED: IOPAMIDOL-370 125ML BTL INJ ONE (13:16)
[2021-09-19] MEDS ORDERED: HYDROcodone/APAP 7.5-325MG 1 EACH TAB PO PRN (13:25)
[2021-09-19] MEDS ORDERED: SODIUM CHLORIDE 0.9% 1,000 ML IV SCH (13:30)
[2021-09-19] MEDS ORDERED: TIROFIBAN 12.5MG-250ML NS 250 ML IV SCH (14:00)
[2021-09-19] MEDS: METOPROLOL TARTRATE 12.5 MG TAB PO SCH (20:46)
[2021-09-19] MEDS: FAMOTIDINE 20 MG TAB PO SCH (20:46)
--- NOTE | 2021-09-19 22:15 | PTCA ---
PERCUTANEOUSTRANS CORORONARY ANGIOGRAPHY DATE OF SERVICE: 09/19/2021. PROCEDURE: PTCA and stenting of mid left anterior descending coronary artery with 2 drug-eluting stents. PERFORMED BY: Dr. Amanda Bustillo. Moderate conscious sedation time was 40 minutes. Patient was administered Versed. Oxygen saturation, hemodynamics and EKG were monitored closely. CLINICAL INFORMATION: Mr. Liborio Lopez is a 51-year-old gentleman, a patient of Dr. Hernandes who presented recently to the hospital and was Covid positive, had a non-ST elevation [place] with precordial T-wave inversion. He saw Dr. Hernandes in the office and was advised cardiac cath. Study from right radial approach was somewhat difficult with extreme tortuosity of the right brachiocephalic artery and aorta junction. Cardiac cath revealed a 95-99 percent mid LAD lesion with minor irregularities in other vessels. He had a right dominant system. He was advised intervention that was performed in the same setting. PROCEDURE NOTE: I used the same right radial sheath. With a JL3.5 guide catheter, I had very great difficulty in getting the catheter to cannulate the artery and also the guide support was insufficient. Therefore I switched over to the right femoral approach. Under local anesthesia and strict aseptic precautions, a 6-Lao introducer was placed in the right femoral artery. I used a JL4 6-Lao guide catheter and a run-through wire and crossed the lesion. A 2.5 caliber 12 mm Trek balloon was used to pre-dilate the lesion. I deployed a 15 mm long 3.0 caliber Xience stent at the site of the 99% occlusion and distal to it there was still some narrowing noted. I therefore deployed an additional 15 mm long stent and telescoped this stent into the previously placed stent distally. Excellent angiographic result was achieved. The patient's ACT was about 269. I gave him some heparin 7000 units and also placed him on an Aggrastat drip. He received 300 mg of Plavix. The patient was already on Plavix and aspirin combination. Excellent angiographic result without complication was achieved. Results were discussed with the patient and I also spoke to his father by phone. The right femoral sheath was taken out and Angio-Seal used to secure hemostasis and the right radial site was addressed with a TR band. Saturation the finger of the right hand was 98%. Patient tolerated procedure well without complications. I expect he will be discharged tomorrow if he remains stable. MMODL / IJN: [id number] /
[2021-09-20] MEDS ORDERED: CHOLECALCIFEROL 25 MCG (1000 IU) TABLET PO SCH (09:00)
[2021-09-20] MEDS ORDERED: CLOPIDOGREL 75 MG TAB PO SCH (09:00)
[2021-09-20] MEDS ORDERED: ZINC SULFATE 220 MG CAP PO SCH (09:00)
[2021-09-20] MEDS ORDERED: LOSARTAN 25 MG TAB PO SCH (09:00)
[2021-09-20] MEDS ORDERED: ASPIRIN 81 MG PO SCH (09:00)
[2021-09-20 09:09] VITALS: BP 118/74; PULSE 74; RESP 15; TEMP 98
[2021-09-20] MEDS: METOPROLOL TARTRATE 12.5 MG TAB PO SCH (09:11)
[2021-09-20] MEDS: FAMOTIDINE 20 MG TAB PO SCH (09:11)
--- NOTE | 2021-09-20 12:43 | P.DS ---
Providers Attending physician: Rosalio Hernandes Primary care physician: Timothy [place] Hospital Course: This is a 51-year-old male who underwent cardiac catheterization yesterday with Dr. Hernandes. Patient was found to have 80-90% stenosis involving the mid LAD. Dr. Bustillo placed 2 stents to the mid LAD. Patient examined this morning at the bedside. Patient denies any chest pain or pressure. He denies shortness of breath. Vital signs are stable. Right groin soft with no hematoma noted. The patient was deemed stable for discharge today per Dr. Bustillo. The patient is to be discharged on triple therapy including Xarelto, aspirin, and Plavix. The patient may discontinue his aspirin after [address] Bustillo. Please see EMR for further hospital course details. Discharge diagnosis #1 recent NSTEMI #2 coronary artery disease status post stenting to the mid LAD #3 history of DVT #4 history of factor V Leiden #5 history of SVT with previous ablation #6 nicotine dependence Nurse practitioner note has been reviewed by physician. Signing provider agrees with the documented findings, assessment, and plan of care. Plan - Discharge Summary Discharge Rx Participant: No New Discharge Prescriptions: New Atorvastatin [Lipitor] 80 mg PO HS #90 tab Losartan [Cozaar] 25 mg PO DAILY #90 tab Continue Metoprolol Tartrate [Lopressor] 12.5 mg PO BID 30 Days #60 tablet Rivaroxaban [Xarelto] 15 mg PO W/SUPPER 30 Days #30 tab Aspirin 81 mg PO DAILY #30 tab Clopidogrel [Plavix] 75 mg PO DAILY #90 tab Nitroglycerin Sl Tabs [Nitrostat] 0.4 mg SUBLINGUAL Q5M PRN #30 tab PRN Reason: Chest Pain No Action HYDROcodone/APAP 7.5-325MG [[place] 7.5-325] 1 tab PO Q8H PRN PRN Reason: Pain Liraglutide [Saxenda] 2.4 mg SQ DAILY Ibuprofen [Motrin] 800 mg PO TID PRN PRN Reason: Pain Cholecalciferol [Vitamin D3 (25 Mcg = 1000 Iu)] 50 mcg PO DAILY 30 Days #30 tab Zinc Sulfate 220 mg PO DAILY 14 Days #14 capsule Famotidine [Pepcid] 20 mg PO BID 30 Days #60 tab Discharge Medication List HYDROcodone/APAP 7.5-325MG [[place] 7.5-325] 1 tab PO Q8H PRN 01/12/15 [History] Liraglutide [Saxenda] 2.4 mg SQ DAILY 08/29/21 [History] Ibuprofen [Motrin] 800 mg PO TID PRN 09/07/21 [History] Cholecalciferol [Vitamin D3 (25 Mcg = 1000 Iu)] 50 mcg PO DAILY 30 Days #30 tab 09/10/21 [Rx] Famotidine [Pepcid] 20 mg PO BID 30 Days #60 tab 09/10/21 [Rx] Metoprolol Tartrate [Lopressor] 12.5 mg PO BID 30 Days #60 tablet 09/10/21 [Rx] Nitroglycerin Sl Tabs [Nitrostat] 0.4 mg SUBLINGUAL Q5M PRN #30 tab 09/10/21 [Rx] Rivaroxaban [Xarelto] 15 mg PO W/SUPPER 30 Days #30 tab 09/10/21 [Rx] Zinc Sulfate 220 mg PO DAILY 14 Days #14 capsule 09/10/21 [Rx] Aspirin 81 mg PO DAILY #30 tab 09/20/21 [Rx] Atorvastatin [Lipitor] 80 mg PO HS #90 tab 09/20/21 [Rx] Clopidogrel [Plavix] 75 mg PO DAILY #90 tab 09/20/21 [Rx] Losartan [Cozaar] 25 mg PO DAILY #90 tab 09/20/21 [Rx] Follow up Appointment(s)/Referral(s): Rosalio Hernandes MD [STAFF PHYSICIAN] - 1 Week (APPOINTMENT MADE ON September @ 8:30AM ) Patient Instructions/Handouts: Heart Catheterization (DC)
[2021-09-20] MEDS ORDERED: RIVAROXABAN 15 MG TAB PO SCH (17:30)
[2021-09-20] MEDS ORDERED: ATORVASTATIN 80 MG TAB PO SCH (21:00)
== END 2021-09-20 13:01 | disposition home or self-care (01) ==
LOC: CATHCVL 10:40 → 3SCARD 13:07 → CATHCVL 09-20 13:01
PROVIDERS: ATTEND Internal Medicine Cardiovascular Disease
DX: I21.4 Non-ST elevation (NSTEMI) myocardial infarction (principal); I25.110 Atherosclerotic heart disease of native coronary artery with unstable angina pectoris; Z86.16 Personal history of COVID-19; I49.5 Sick sinus syndrome; I47.1 Supraventricular tachycardia; D68.51 Activated protein C resistance; K21.9 Gastro-esophageal reflux disease without esophagitis; Z82.49 Family history of ischemic heart disease and other diseases of the circulatory system; I25.2 Old myocardial infarction; Z86.718 Personal history of other venous thrombosis and embolism; Z98.890 Other specified postprocedural states; F17.200 Nicotine dependence, unspecified, uncomplicated; Z79.01 Long term (current) use of anticoagulants; Z79.02 Long term (current) use of antithrombotics/antiplatelets; Z79.82 Long term (current) use of aspirin; Z79.899 Other long term (current) drug therapy; Z88.2 Allergy status to sulfonamides; Z91.09 Other allergy status, other than to drugs and biological substances
CPT/HCPCS: 93458; 87635; C9600; C1760; C1887; C1725; C1769 ×3; C1894; C1874; J2250; J2001; J3010; J1644; J3246; Q9967

== ENCOUNTER 2021-09-26 16:04 | Emergency (ER) | payer OTHER ==
[2021-09-26 16:11] VITALS: BP 135/82; PULSE 74; RESP 18; TEMP 99
--- NOTE | 2021-09-26 16:39 | ED ---
General Adult HPI - General Chief complaint: Recheck/Abnormal Lab/Rx Stated complaint: Rt Groin Incisional Lump,Pain Time Seen by Provider: 09/26/21 16:12 Source: patient, RN notes reviewed, old records reviewed Mode of arrival: ambulatory Limitations: no limitations - History of Present Illness Initial comments: 51-year-old male status post heart cath on September 19 presenting with groin swelling. Patient noticed some increased swelling approximately 2 days ago. 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 Patient denies any symptoms below the groin. He states he is anticoagulated and had 2 stents placed with this heart catheterization. No abdominal pain. No fever. - Related Data Home Medications Medication Instructions Recorded Confirmed HYDROcodone/APAP 7.5-325MG [[place] 1 tab PO Q8H PRN 01/12/15 09/19/21 7.5-325] Liraglutide [Saxenda] 2.4 mg SQ DAILY 08/29/21 09/19/21 Ibuprofen [Motrin] 800 mg PO TID PRN 09/07/21 09/19/21 Previous Rx's Medication Instructions Recorded Cholecalciferol [Vitamin D3 (25 50 mcg PO DAILY 30 Days #30 tab 09/10/21 Mcg = 1000 Iu)] Famotidine [Pepcid] 20 mg PO BID 30 Days #60 tab 09/10/21 Metoprolol Tartrate [Lopressor] 12.5 mg PO BID 30 Days #60 tablet 09/10/21 Nitroglycerin Sl Tabs [Nitrostat] 0.4 mg SUBLINGUAL Q5M PRN #30 tab 09/10/21 Rivaroxaban [Xarelto] 15 mg PO W/SUPPER 30 Days #30 tab 09/10/21 Zinc Sulfate 220 mg PO DAILY 14 Days #14 capsule 09/10/21 Aspirin 81 mg PO DAILY #30 tab 09/20/21 Atorvastatin [Lipitor] 80 mg PO HS #90 tab 09/20/21 Clopidogrel [Plavix] 75 mg PO DAILY #90 tab 09/20/21 Losartan [Cozaar] 25 mg PO DAILY #90 tab 09/20/21 Allergies Allergy/AdvReac Type Severity Reaction Status Date / Time adhesive Allergy Rash/Hives Verified 09/26/21 16:11 silver sulfadiazine Allergy Rash/Hives Verified 09/26/21 16:11 [From Anthony] Review of Systems ROS Statement: Those systems with pertinent positive or pertinent negative responses have been documented in the HPI. ROS Other: All systems not noted in ROS Statement are negative. Past Medical History Past Medical History: Blood Disorder, Deep Vein Thrombosis (DVT), GERD/Reflux, Osteoarthritis (OA), Pneumonia, Supraventricular Tachycardia (SVT), Vascular Disorder Additional Past Medical History / Comment(s): Factor V Leiden, DVT x4 R lower leg/decreased circulation and has had R ankle wounds in the past, SVT with ablation, arthritis bilateral knees, pneumonia with pleurisy. History of Any Multi-Drug Resistant Organisms: None Reported Past Surgical History: Cardiac Ablation, Orthopedic Surgery Additional Past Surgical History / Comment(s): Loop recorder since removed, R wrist ganglion cyst, R knee arthroscopy x2, L knee arthroscopy x1, L rotator cuff surgery, colonoscopy. cardiac stent on 09-19-2021 . 2 stents placed. Past Anesthesia/Blood Transfusion Reactions: No Reported Reaction Past Psychological History: No Psychological Hx Reported Smoking Status: Current every day smoker Past Alcohol Use History: None Reported Past Drug Use History: None Reported - Past Family History Mother Family Medical History: Respiratory Disorder Additional Family Medical History / Comment(s): Mother is . She had lung disease. Father Family Medical History: Coronary Artery Disease (CAD), Myocardial Infarction (TN) Additional Family Medical History / Comment(s): Father is alive. He had TN in his 30s. Etoh abuse. General Exam Limitations: no limitations General appearance: alert, in no apparent distress Head exam: Present: atraumatic, normocephalic Eye exam: Present: normal appearance, PERRL ENT exam: Present: normal exam Neck exam: Present: normal inspection. Absent: tenderness, meningismus Respiratory exam: Present: normal lung sounds bilaterally. Absent: respiratory distress, wheezes Cardiovascular Exam: Present: regular rate, normal rhythm GI/Abdominal exam: Present: soft, distended. Absent: tenderness, guarding Extremities exam: Present: other (Right lower extremity: Patient has ecchymosis in the groin, some soft tissue swelling. No erythema, no crepitus. He has a firm mass at the inguinal fold approximately 2 cm on palpation. Nonpulsatile. Distal pulses intact.) Neurological exam: Present: alert, oriented X3, CN II-XII intact. Absent: motor sensory deficit Psychiatric exam: Present: normal affect, normal mood Skin exam: Present: warm, dry, intact. Absent: cyanosis, diaphoretic Course Vital Signs 09/26/21 16:07 Temperature 99.0 F Pulse Rate 74 Respiratory 18 Rate Blood Pressure 135/82 O2 Sat by Pulse 98 Oximetry Medical Decision Making - Medical Decision Making 51-year-old male presenting with groin swelling, he has a small palpable mass, nonpulsatile. Otherwise no significant physical exam findings. Ultrasound performed rule out pseudoaneurysm. This is negative, shows a small 3 cm fluid collection likely hematoma. I did discuss case with Dr. Rivas, covering for cardiology, agreeable with discharge at this time, recommends follow-up with Dr. Hernandes. Patient has an appointment for Thursday. Return parameters discussed. Disposition Clinical Impression: Hematoma Disposition: HOME SELF-CARE Condition: Good Instructions (If sedation given, give patient instructions): Hematoma (ED) Is patient prescribed a controlled substance at d/c from ED?: No Referrals: Timothy Lynch III, MD [Primary Care Provider] - 1-2 days Rosalio Hernandes MD [STAFF PHYSICIAN] - 1-2 days Time of Disposition: 17:39
--- NOTE | 2021-09-26 17:23 | US ---
EXAMINATION TYPE: US lower ext pseudo artery RT DATE OF EXAM: 09/26/2021 COMPARISON: NONE CLINICAL HISTORY: rt groin swelling. right groin bruising and swelling after heart cath 09/19/2021 EXAM PERFORMED: Grayscale and color Doppler duplex imaging performed of the groin, post cardiac loi ter to assess for pseudoaneurysm. SIDE PERFORMED: Right Color and Waveform Doppler performed to assess for the presence of pseudoaneurysm; Is there ultrasound evidence of a pseudoaneurysm: No Is there evidence of AV shunting: No Is there a fluid collection present: No, but at the site of interest there is a 3 cm mean diameter he terogeneously echogenic mass anterior to the vessels, likely representing resolving hematoma which ca n be proven with resolution of the palpable finding. IMPRESSION: 3 cm mass as described, likely resolving hematoma.
== END 2021-09-26 17:53 | disposition home or self-care (01) ==
LOC: EC 16:04
DX: M79.81 Nontraumatic hematoma of soft tissue (principal); M19.90 Unspecified osteoarthritis, unspecified site; F17.200 Nicotine dependence, unspecified, uncomplicated; Z86.718 Personal history of other venous thrombosis and embolism; Z79.82 Long term (current) use of aspirin
CPT/HCPCS: 93975; 99283

== ENCOUNTER → 2024-01-27 | Outpatient (CLI) | payer OTHER ==
--- NOTE | 2024-01-27 15:47 | XR ---
EXAMINATION TYPE: XR ankle complete LT DATE OF EXAM: 01/27/2024 COMPARISON: NONE HISTORY: Pain TECHNIQUE: 3 views of the left ankle are submitted for evaluation. FINDINGS: There is no evidence for fracture or dislocation. Ankle mortise is intact. Soft tissue swel ling noted. Chronic deformity distal superomedial malleolar region. IMPRESSION: 1. No evidence for acute fracture.
--- NOTE | 2024-01-27 15:48 | XR ---
EXAMINATION TYPE: XR foot complete LT DATE OF EXAM: 01/27/2024 CLINICAL HISTORY: pain TECHNIQUE: Frontal, lateral and oblique images of the left foot are obtained. COMPARISON: None. FINDINGS: There is no acute fracture/dislocation evident. The joint spaces appear within normal goode its. The overlying soft tissue appears unremarkable. IMPRESSION: There is no acute fracture or dislocation. ICD 10 NO FRACTURE, INITIAL EVALUATION
== END | disposition home or self-care (01) ==
LOC: RADXRMAIN 15:21
PROVIDERS: ATTEND Emergency Medicine
DX: S93.402A Sprain of unspecified ligament of left ankle, initial encounter (principal); S93.602A Unspecified sprain of left foot, initial encounter

== ENCOUNTER → 2024-03-08 | Outpatient (CLI) | payer OTHER ==
--- NOTE | 2024-03-08 19:45 | XR ---
EXAMINATION TYPE: XR shoulder complete LT, XR shoulder limited RT DATE OF EXAM: 03/08/2024 6:22 PM CLINICAL INDICATION:Male, 53 years old with history of M19.011 M25.512 M75.42 PRIMARY OSTEOARTHRITIS, RIG; [facility] COMPARISON: 03/24/2017 01/19/2017 TECHNIQUE: XR shoulder complete LT, XR shoulder limited RT; left shoulder examined in AP, internally rotated and scapular Y projections. Right shoulder examined in frontal view only. FINDINGS: No evidence of acute osseous pathology, joint dislocation, or soft tissue swelling. The remaining po rtions of the visualized chest are unremarkable. Degeneration changes of the acromion, distal clavic le with osteophyte formation. There is osteophyte formation of the glenoid and humeral head. There is joint space narrowing of glenohumeral joint. Rotator cuff repair anchors involving the left shoulder. IMPRESSION: 1. No acute osseous pathology. 2. Mild bilateral shoulder osteoarthrosis.
== END | disposition home or self-care (01) ==
LOC: RADXRMAIN 18:06
PROVIDERS: ATTEND Family Medicine
DX: M19.011 Primary osteoarthritis, right shoulder (principal); M25.512 Pain in left shoulder; M75.42 Impingement syndrome of left shoulder; M19.012 Primary osteoarthritis, left shoulder

== ENCOUNTER → 2024-04-08 | Outpatient (CLI) | payer OTHER ==
--- NOTE | 2024-04-08 20:47 | MR ---
EXAMINATION TYPE: MR shoulder LT wo con DATE OF EXAM: 04/08/2024 COMPARISON: 05/25/2017 HISTORY: Left shoulder pain for 6+ weeks, history of surgery TECHNIQUE: Multiplanar, multisequence imaging of the left shoulder is performed without contrast. FINDINGS: There are post surgical changes of supraspinatus rotator cuff repair. There is recurrent full thickness tear supraspinatus tendon with retraction medially. There is marked osteophytic changes of the AC joint with a small subacromial spur resulting in modera te to severe shoulder impingement. Infraspinatus and subscapularis tendons are intact. The biceps tendon is not identified within the bicipital groove and is likely dislocated medially. Th ere is a large SLAP injury involving the superior cartilaginous labrum from anterior to posterior. There is thickening of the inferior glenohumeral ligament suggestive of adhesive capsulitis. There is mild subdeltoid and subacromial bursitis. IMPRESSION: 1. Recurrent full-thickness tear with retraction of the supraspinatus tendon of the rotator cuff. Pos tsurgical changes of prior supraspinatus rotator cuff tear repair 2. Marked osteoarthritic change of the AC joint resulting in moderate to severe shoulder impingement. 3. Probable dislocated biceps tendon and large SLAP injury involving the superior cartilaginous labru m. 4. Mild subacromial and subdeltoid bursitis. 5. Findings suggestive of a cystic capsulitis.
== END | disposition home or self-care (01) ==
LOC: RADMRIMAIN 18:25
PROVIDERS: ATTEND Family Medicine
DX: M19.012 Primary osteoarthritis, left shoulder (principal); M75.42 Impingement syndrome of left shoulder; M25.812 Other specified joint disorders, left shoulder; M75.122 Complete rotator cuff tear or rupture of left shoulder, not specified as traumatic; M75.52 Bursitis of left shoulder